=== PATIENT | male | born 1950 | race African-American/Black ===

== ENCOUNTER 2017-06-06 08:11 | Emergency (ER) | payer MEDICARE, OTHER ==
[2017-06-06] MEDS ORDERED: Morphine 4 MG/ML VIAL ONE (08:55)
[2017-06-06 08:59] LABS: #Eosinphils 1.1 thou/uL (0.0-0.7); #Lymphocytes 1.3 thou/uL (1.20-3.40); #Monocytes 0.5 thou/uL (0.11-0.59); #Neutrophils 4.5 thou/uL (1.40-6.50); %Basophils 0.3 % (0.0-1.0); %Monocytes 6.2 % (0.0-10.0); Hematocrit 44.8 % (42.0-52.0); Mean Platelet Volume 6.5 fL (7.4-10.4); White Blood Cell (WBC) Count 7.4 thou/uL (4.8-10.8)
[2017-06-06 09:24] LABS: ALT (SGPT) 14 U/L (8-55); AST (SGOT) 20 U/L (5-34); Alkaline Phosphatase 115 U/L (40-150); Anion Gap 13 mmol/L (10-20); BUN (Urea Nitrogen) 8 mg/dL (8.4-25.7); Bilirubin, Total 0.4 mg/dL (0.2-1.2); Calc. Creatinine Clearance 0 mL/min (70-130); Calcium 8.9 mg/dL (7.8-10.44); Carbon Dioxide 22 mmol/L (23-31); Chloride 100 mmol/L (98-107); Estimated GFR-MDRD Greater than 90; Globulin 3.6 g/dL (2.4-3.5); Lipase 129 U/L (8-78); Protein, Total 7.4 g/dL (5.8-8.1)
[2017-06-06] MEDS ORDERED: ISOVUE-370 76%-LOCM 1 ML ONE (10:05)
--- NOTE | 2017-06-06 11:13 | CT ---
CT OF THE ABDOMEN AND PELVIS WITH IV CONTRAST: Date: 06/06/17 INDICATION: 67-year-old male with abdominal pain for 2 days without bowel movements for 3 days. There is no repor t of fever, chills, nausea, vomiting, or diarrhea. Patient has a history of prior colon surgery in . COMPARISON: CT of the abdomen and pelvis dated 03/12/[address] of the abdomen dated 10/12/16. FINDINGS: ABDOMEN: The areas of scarring and interstitial thickening involving both lung bases are similar appearing. Th ere are areas of mild reticular nodularity again seen involving both lung bases, right greater than l eft, which may reflect changes of some bronchiolitis. There are scattered vascular calcifications involving the abdominopelvic vasculature. There are calci fied lymph nodes seen within the right infrahilar region. There are calcified granulomas within the l iver. There is contrast within the distal esophagus which may be related to reflux or esophageal dysmotilit y. The adrenal glands, pancreas, and left kidney appear within normal limits. There is a stable superior pole right renal cyst measuring 2.9 cm. The infrarenal abdominal aortic aneurysm is likely stable to the comparison in 2016 measuring up to 3 .3 cm. There is an endovascular stent within the right common iliac artery. There is some irregularit y within the lumen of the stent suspected. The patency of the stent is difficult to assess on this ex amination due to the phase of contrast administration. There is contrast opacification within the dis ramakrishna right common iliac artery, therefore complete occlusion is felt to be unlikely. PELVIS: The prostate is mildly enlarged. The bladder is moderately dilated. There are a few scattered diverticula involving the colon without evidence of active diverticulitis. There is stable postsurgical change of a right hemicolectomy and ileocolonic anastomosis within the r ight upper quadrant of the abdomen. The small bowel is of normal caliber. There is no evidence of bow el obstruction. No free fluid is evident. There is partial visualization of a left hip cephalomedullary device and healed left subtrochanteric hip fracture. There is scattered degenerative and osteoarthritic change. Small hemangiomas are seen w ithin the right aspect of L3 and L2. No suspicious osteolytic or osteoblastic lesions identified. IMPRESSION: 1. Moderate distention of the bladder may reflect sequelae of chronic bladder outlet obstruction. 2. Stable infrarenal abdominal aortic aneurysm. 3. Right common iliac artery stent. A degree of patency of the stent cannot be entirely evaluated on this venous phase examination. 4. Contrast within the distal esophagus may reflect reflux or dysmotility. 5. Reticular nodularity of both lung bases, right greater than left, may reflect bronchiolitis or in fectious or inflammatory etiology. 6. Stable right renal cyst. 7. Findings of prior granulomatous disease. 8. Other chronic findings as above. POS: [facility]
--- NOTE | 2017-06-08 15:40 | EKG ---
Test Reason : Blood Pressure : / mmHG Vent. Rate : 087 BPM Atrial Rate : 087 BPM P-R Int : 156 ms QRS Dur : 088 ms QT Int : 368 ms P-R-T Axes : 061 -40 054 degrees QTc Int : 442 ms Normal sinus rhythm Left axis deviation Abnormal ECG Confirmed by SRIDHAR FLOYD D.O. ([id number]), supervising editor trailer WENDY BURNS ([id number]) on 06/08/2017 3:39:59 PM Referred By: Confirmed By:SRIDHAR FLOYD D.O.
== END 2017-06-06 11:35 | disposition home or self-care (01) ==
LOC: ERS 08:11
DX: K85.90 Acute pancreatitis without necrosis or infection, unspecified (principal); K59.00 Constipation, unspecified; I10 Essential (primary) hypertension; Z79.82 Long term (current) use of aspirin; Z79.899 Other long term (current) drug therapy; Z86.711 Personal history of pulmonary embolism; Z87.891 Personal history of nicotine dependence
CPT/HCPCS: 74177; 80053; 83690; 85025; 93005; 96374; J2270

== ENCOUNTER 2017-09-18 03:28 | Emergency (ER) | payer MEDICARE, OTHER ==
[2017-09-18 03:48] LABS: #Eosinphils 0.5 thou/uL (0.0-0.7); #Lymphocytes 1.9 thou/uL (1.20-3.40); #Monocytes 0.5 thou/uL (0.11-0.59); #Neutrophils 3.6 thou/uL (1.40-6.50); %Basophils 0.6 % (0.0-1.0); %Eosinophils 7.7 % (0.0-10.0); %Monocytes 7.1 % (0.0-10.0); %Neutrophils 55.5 % (42.0-75.0); Hemoglobin 15.1 g/dL (14.0-18.0); Mean Corpuscular HGB CONC 34.2 g/dL (32.0-36.0); Mean Corpuscular Hemoglobin 31.1 pg (27.0-31.0); Mean Corpuscular Volume 90.9 fl (80.0-94.0); Mean Platelet Volume 6.6 fL (7.4-10.4); Platelet Count 194 thou/uL (130-400); RBC Distribution Width 13.4 % (11.5-14.5); Red Blood Cell (RBC) Count 4.84 mill/uL (4.70-6.10); White Blood Cell (WBC) Count 6.4 thou/uL (4.8-10.8)
[2017-09-18] MEDS ORDERED: Ondansetron HCl/PF 4 MG/2 ML Vial ONE (03:56)
[2017-09-18] MEDS ORDERED: Morphine 4 MG/ML VIAL ONE (03:56)
[2017-09-18 04:13] LABS: CKMB 0.8 ng/mL (0-6.6); Troponin I Less than 0.010 ng/mL (< 0.028)
[2017-09-18 04:27] LABS: ALT (SGPT) 18 U/L (8-55); AST (SGOT) 25 U/L (5-34); Albumin 4.3 g/dL (3.4-4.8); Alkaline Phosphatase 132 U/L (40-150); Anion Gap 20 mmol/L (10-20); BUN (Urea Nitrogen) 11 mg/dL (8.4-25.7); Bilirubin, Total 0.2 mg/dL (0.2-1.2); CK (CPK) 84 U/L (30-200); Calc. Creatinine Clearance 0 mL/min (70-130); Calcium 9.3 mg/dL (7.8-10.44); Carbon Dioxide 19 mmol/L (23-31); Chloride 101 mmol/L (98-107); Estimated GFR-MDRD 77; Globulin 3.8 g/dL (2.4-3.5); Glucose 121 mg/dL (80-115); Potassium 4.7 mmol/L (3.5-5.1); Protein, Total 8.1 g/dL (5.8-8.1); Sodium 135 mmol/L (136-145)
[2017-09-18] MEDS ORDERED: Mag-Al 1200 mg/1200 mg/30 ML UDCUP ONE (04:37)
[2017-09-18] MEDS ORDERED: Lidocaine Viscous Sol 2% 15 ml UD Cup ONE (04:37)
--- NOTE | 2017-09-18 08:05 | RAD ---
FRONTAL VIEW CHEST: INDICATIONS: Emergency exam. Chest pain, new onset. FINDINGS: There is patchy left basilar opacity. Slight residual right basilar opacity also remains. There is no effusion or discrete pneumothorax. The cardiac silhouette is stable. IMPRESSION: Interval improvement of right basilar opacity. Left patchy basilar opacity persists. Continued foll owup is recommended. POS: [facility]
[2017-09-18] MEDS ORDERED: ISOVUE-370 76%-LOCM 1 ML ONE (09:30)
--- NOTE | 2017-09-19 07:20 | CT ---
PRELIMINARY REPORT/[facility]/EMERGENCY AFTER HOURS PROCEDURE: EXAM: CT Angiography Chest With Intravenous Contrast CT Angiography Abdomen and Pelvis With Intravenous Contrast CLINICAL HISTORY: 67 years old, male; Pain; Chest pain; Type not specified; Patient HX: 67 y/o male HX of pancreatitis, aaa (stable- no repair), pe, HTN presenting with sudden onset of epigastric pain 4 hours ago. Afebrile, hemodynamically stable and in moderate distress 2/2 pain. Cardiovascular exam with no signs of overt heart failure or strain. Strong and equal peripheral pulses. Normal work of breathing, bris k cap refill and no clinical signs of dehydration. Abdomen with ttp in mid epigastric region. Reducib le midline hernia and well healed surgical scar. Considered acs, dissection, pe, aaa/thoracic, pancre atitis, perforated viscous, gerd. Plan - CT pe with run offs to visualize aorta, cardiac and abdomina l labs, pain/nausea control. TECHNIQUE: Axial computed tomographic angiography images of the chest, abdomen and pelvis with intravenous contr ast using CT angiography protocol. All CT scans at this facility use one or more dose reduction techn iques, viz.: automated exposure control; ma/kV adjustment per patient size (including targeted exams where dose is matched to indication; i.e. head); or iterative reconstruction technique. CONTRAST: 150 mL of ISO 370 administered intravenously. COMPARISON: No relevant prior studies available. FINDINGS: VASCULATURE: Aorta: Dilated descending thoracic aorta measuring up to 4.1 cm with mural thrombus, normalizing in c aliber distally measuring 2.6 cm at the hiatus. Infrarenal aortic aneurysm with mural thrombus measur ing up to 3.3 cm beginning 2.7 cm below the renal arteries extending to the bifurcation. Right common iliac artery stent. Mild/moderate iliofemoral atherosclerotic changes. No dissection. Pulmonary arteries: No pulmonary embolus is identified. Great vessels of aortic arch: No acute findings. No dissection. No arterial occlusion or significant stenosis. Celiac trunk and mesenteric arteries: No acute findings. No occlusion or significant stenosis. Renal arteries: No acute findings. No occlusion or significant stenosis. Iliac arteries: No acute findings. No occlusion or significant stenosis. CHEST: Lungs: Mild to moderate centrilobular emphysematous changes. Few calcified granulomas. Mild bronchial wall thickening. Mild bibasilar subsegmental and dependent atelectasis with some right lower lobe vo lume loss. No mass or consolidation. Pleural space: No significant effusion. No pneumothorax. Heart: Coronary calcifications. No significant pericardial effusion. ABDOMEN: Liver: Normal. Gallbladder and bile ducts: Cholelithiasis. Otherwise unremarkable. Pancreas: Unremarkable. No surrounding inflammatory changes. Spleen: Normal. Adrenals: Normal. Kidneys and ureters: 1 cm and 2.6 cm right renal cysts. Otherwise unremarkable. Stomach and bowel: Right hemicolectomy. Scattered colonic diverticula. Fluid-filled stomach. Mild gas eous distention of the colon. No focal inflammatory changes or evidence of obstruction. Appendix: See above. PELVIS: Bladder: Distended urinary bladder. Reproductive: Unremarkable. CHEST, ABDOMEN and PELVIS: Intraperitoneal space: Normal. No significant fluid collection. No free air. Bones/joints: Orthopedic fixation of the left femoral neck. No acute fracture. No dislocation. Soft tissues: Small abdominal wall eventration in the epigastrium with slight protrusion of nonobstru cted colon. Small fat-containing abdominal wall hernia just inferiorly. Lymph nodes: Calcified right hilar lymph nodes. IMPRESSION: 1. No acute findings. 2. Descending thoracic and infrarenal abdominal aortic aneurysms. Thank you for allowing us to participate in the care of your patient. Dictated and Authenticated by: Rene Angel MD 09/18/2017 6:19 AM Central Time ([place] & [place]) FINAL REPORT CT ANGIO OF CHEST PERFORMED WITH INTRAVENOUS CONTRAST ENHANCEMENT CT ANGIO OF ABDOMEN AND PELVIS PERFORMED WITH INTRAVENOUS CONTRAST ENHANCEMENT WITH 3D RECONSTRUCTION S: History: Patient presented with sudden onset of epigastric pain. History of abdominal aortic aneurysm , pancreatis. Comparison: 10-17-16 FINDINGS: There are emphysematous lung changes present. There is interstitial scarring in the lung bases. No pl eural effusion is identified. There is no significant mediastinal or hilar adenopathy. There is good pulmonary artery opacification, there is no CT evidence for pulmonary embolus. The ascending thoracic aorta is normal in caliber at 3.8 cm. Once again the proximal descending thora cic aorta is mildly aneurysmal with prominent intraluminal thrombus. The proximal aorta measures 4 cm tapering to approximately 2.7 cm at the esophageal hiatus. This is similar to the previous exam. CT ANGIO OF ABDOMEN PERFORMED WITH CONTRAST ENHANCEMENT WITH 3D RECONSTRUCTIONS: The liver, spleen, and pancreas regions are unremarkable. Subtle increased attenuation of the gallbla dder neck may be on the basis of some small stones or calcifications in the region of the pancreatic head. They appear to be related to vasculature in this area. Right and left adrenal glands and right and left kidneys are normal in size. There is a 2.8 cm right renal cyst and a smaller lower pole cyst which appears stable. No renal calculi are seen. No obstruct ion. No significant periaortic or mesenteric adenopathy. Infrarenal abdominal aorta is mildly aneurysmal a nd measures approximately 3.1 cm in AP dimension when measured at the same level of the previous exam . There is a right common iliac stent present. There are right hemicolectomy changes seen. CT OF PELVIS PERFORMED WITH CONTRAST ENHANCEMENT: The bladder is distended. The prostate is slightly enlarged. No evidence of adenopathy, mass or free fluid. IMPRESSION: 1. Stable appearance of the descending thoracic aneurysm and infrarenal and abdominal aortic aneurysm . 2. Probable small gallstones. 3. Stable right renal cyst. 4. Right hemicolectomy change. 5. Emphysematous lung change. 6. This report is in agreement with the temporary report that was issued by [facility]. POS: [facility]
== END 2017-09-18 06:51 | disposition home or self-care (01) ==
LOC: ERS 03:28
DX: K21.9 Gastro-esophageal reflux disease without esophagitis (principal); I10 Essential (primary) hypertension; Z87.01 Personal history of pneumonia (recurrent); Z86.711 Personal history of pulmonary embolism; Z79.82 Long term (current) use of aspirin; Z79.899 Other long term (current) drug therapy
CPT/HCPCS: 71045; 71275; 80053; 82553; 83605; 83690; 84484; 85025; 93005; 96361; 96374; 96375; J2270; J2405

== ENCOUNTER 2018-03-13 12:06 | Outpatient (CLI) | payer MEDICARE, OTHER | END 2018-03-13 12:07 | disposition home or self-care (01) | LOC: BICCT 12:06 | PROVIDERS: ATTEND Nurse Practitioner Family | DX: R13.0 Aphagia (principal) | CPT/HCPCS: 70450 ==

== ENCOUNTER 2018-05-08 11:49 | Emergency (ER) | payer MEDICARE, OTHER ==
[2018-05-08 12:47] LABS: #Eosinphils 0.1 thou/uL (0.0-0.7); #Lymphocytes 1.5 thou/uL (1.20-3.40); #Monocytes 0.4 thou/uL (0.11-0.59); #Neutrophils 3.6 thou/uL (1.40-6.50); %Basophils 0.5 % (0.0-1.0); %Eosinophils 2.4 % (0.0-10.0); %Lymphocytes 26.1 % (21.0-51.0); %Monocytes 7.1 % (0.0-10.0); %Neutrophils 63.9 % (42.0-75.0); Mean Corpuscular HGB CONC 32.8 g/dL (32.0-36.0); Mean Corpuscular Volume 94.5 fL (78.0-98.0); Mean Platelet Volume 6.9 fL (7.4-10.4); Platelet Count 182 thou/uL (130-400); RBC Distribution Width 13.5 % (11.5-14.5); Red Blood Cell (RBC) Count 5.17 mill/uL (4.70-6.10); White Blood Cell (WBC) Count 5.6 thou/uL (4.8-10.8)
[2018-05-08 13:04] LABS: ALT (SGPT) 13 U/L (8-55); AST (SGOT) 23 U/L (5-34); Albumin 3.9 g/dL (3.4-4.8); Alkaline Phosphatase 88 U/L (40-150); Anion Gap 12 mmol/L (10-20); BUN (Urea Nitrogen) 7 mg/dL (8.4-25.7); Bilirubin, Total 0.7 mg/dL (0.2-1.2); Calc. Creatinine Clearance 0 mL/min (70-130); Calcium 9.5 mg/dL (7.8-10.44); Carbon Dioxide 23 mmol/L (23-31); Chloride 104 mmol/L (98-107); Estimated GFR-MDRD Greater than 90; Globulin 3.3 g/dL (2.4-3.5); Glucose 76 mg/dL (80-115); Potassium 4.3 mmol/L (3.5-5.1); Protein, Total 7.2 g/dL (5.8-8.1); Sodium 135 mmol/L (136-145)
--- NOTE | 2018-05-08 13:18 | ULT ---
ULTRASOUND WITH DOPPLER DUPLEX VENOUS LOWER EXTREMITY LEFT: CPT: 56400 ICD-10-PCS: B54D HISTORY: Pain. TECHNIQUE: Color flow Doppler, spectral waveform analysis of pulsed Doppler, and cruz-scale imaging with abebe loreta and augmentation, were used to evaluate the bilateral common femoral, femoral, popliteal, agriculture consultant ior tibial, and superficial femoral, veins; and the proximal portions of the profunda femoral and gre ater saphenous, veins. FINDINGS: There is appropriate compressibility and flow within the imaged deep venous system of the left lower extremity, without evidence of DVT. IMPRESSION: No evidence of deep vein thrombosis of the imaged left lower extremity. POS: [facility]
--- NOTE | 2018-05-08 14:51 | CT ---
CT ANGIOGRAM ABDOMEN AND PELVIS WITH IV CONTRAST AND 3D RECONSTRUCTIONS CT ANGIOGRAM BILATERAL LOWER EXTREMITIES WITH RUNOFF TO THE FEET WITH IV CONTRAST AND 3D RECONSTRUCTI ONS: Date: 05/08/18 HISTORY: Loss of leg pulses. Unable to feel pulses distal to the popliteal arteries on physical exam. COMPARISON: CT abdomen and pelvis on 06/06/17. FINDINGS: CT ANGIOGRAM ABDOMEN AND PELVIS: There are calcified right hilar lymph nodes with calcified granulomata seen within the right lung bas e. Linear areas of scarring and/or atelectasis are seen at each lung base. Calcified granulomata are seen in the liver and spleen. Right renal cysts are again present. The pancreas, bilateral adrenal glands, left kidney, and urinary bladder demonstrate a normal CT appe arance. Prostate gland is enlarged, with transverse dimensions measuring 5.5 cm. There is colonic diverticulosis. Postsurgical changes related to right hemicolectomy noted. There is ventral abdominal wall hernia in the epigastric region with a portion of the anterior wall of the transverse colon extending into the defect. There are additional small, fat-containing supraumbilical hernias as well. There are atherosclerotic calcifications and plaque seen in the abdominal aorta and involving the francisco ac arteries. An infrarenal abdominal aortic aneurysm is again present, slightly larger in size, measu ring 3.4 cm x 3.3 cm, and on the prior study this measured 3.1 cm x 3.0 cm in maximal dimensions. The aneurysm extends to the level of the aortic bifurcation, but does not involve the iliac arteries. Th ere is prominent calcified atherosclerotic plaque within the iliac artery. There is question of a aurelia nt within the right common iliac artery. Left common iliac artery is ectatic. There is a single patent right renal artery with mild atherosclerotic plaque at the origin of the lef t renal artery with only mild narrowing at the origin of the left renal artery. There is atherosclero tic plaque involving the proximal celiac and superior mesenteric arteries, but these arteries are pat ent. The inferior mesenteric artery also appears patent. Dense vascular calcifications involve the iliac arteries bilaterally with mild degrees of narrowing. There are prominent degenerative changes in the lumbar spine. No other interval change from prior johnathan dy. CT ANGIOGRAM BILATERAL LOWER EXTREMITIES WITH RUNOFF TO THE FEET: Right lower extremity: There are scattered atherosclerotic vascular calcifications within the femora l arteries. There is artifact at the level of the distal left SFA in the region of the adductor canal with prominent vascular calcifications limiting adequate evaluation, but there is mild to moderate n arrowing in the right SFA at the level of the adductor canal. Mild atherosclerotic plaque narrowing i s seen in the [id number] popliteal artery. Eccentric atherosclerotic plaque is seen involving the distal right popliteal artery. Posterior tibial artery is occluded at the origin. There is faint opa cification of the anterior tibial and peroneal arteries. No flow is seen within the peroneal artery d istal to the level of the proximal calf and there is only very faint enhancement of the right anterio r tibial artery to the level of the mid calf. Left lower extremity: There is occlusion of the right superficial femoral artery at the level of the mid thigh. The left common femoral artery is patent. The proximal and mid superficial femoral artery are patent, although there is suggestion of occlusion of branch vessels of the profunda femoral jeferson ry at the level of the proximal thigh. Atherosclerotic plaque involves the popliteal artery with mild degrees of narrowing involving the lef t popliteal artery. There is single vessel runoff to the left lower extremity via the peroneal artery , with contrast opacification only seen to the level of the distalmost calf. The anterior tibial and posterior tibial arteries appear to be occluded proximally. There are postsurgical changes of the left femur related to an antegrade medullary trae transfixing a fracture involving the proximal and mid diaphysis of the femur with prominent heterotopic ossificatio n. Dorsalis pedis and posterior tibial arteries of bilateral lower extremities are not seen. IMPRESSION: 1. Slight interval increase in infrarenal abdominal aortic aneurysm with greatest dimension of 3.4 c m, with prominent eccentric atherosclerotic plaque present. 2. Diffuse atherosclerotic vascular calcifications and plaque seen throughout the arterial vessels. 3. Occlusion of the mid left superficial femoral artery extending for a length of approximately 4.7 cm. 4. Single vessel runoff to the left lower extremity via the peroneal artery. 5. Suboptimal opacification of the distal right lower extremity arterial vessels, although there is faint opacification of the anterior tibial artery to the level of the mid to distal calf. There is no enhancement/opacification involving the dorsalis pedis or posterior tibial arteries bilaterally. 6. Occlusion of more distal branching vessels of the left profunda femoral artery at the level of th e remote diaphyseal fracture of the left femur. 7. Postsurgical changes related to right hemicolectomy. There are ventral abdominal wall hernias, an d at least two of the hernias contain fat, but the ventral abdominal wall hernia in the epigastric re gion does contain the anterior wall of the transverse colon without evidence of a bowel obstruction. 8. Remainder of the findings are as described above. POS: [facility]
[2018-05-08] MEDS ORDERED: ISOVUE-370 76%-LOCM 1 ML ONE (16:21)
== END 2018-05-08 17:21 | disposition home or self-care (01) ==
LOC: ERS 11:49
DX: I73.9 Peripheral vascular disease, unspecified (principal); I10 Essential (primary) hypertension; F17.210 Nicotine dependence, cigarettes, uncomplicated; Z86.711 Personal history of pulmonary embolism; Z87.01 Personal history of pneumonia (recurrent); Z79.899 Other long term (current) drug therapy; Z79.82 Long term (current) use of aspirin
CPT/HCPCS: 36415; 75635; 80053; 85025; 93005

== ENCOUNTER 2018-05-13 10:14 | Day surgery (SDC) | payer MEDICARE, OTHER ==
[2018-05-12 17:00] VITALS: BMI 26.2
[2018-05-13] MEDS ORDERED: Lidocaine 1% (PF) 30 ML VIAL ONE (10:56)
[2018-05-13] MEDS ORDERED: Midazolam HCl 2 mg/2 ml Vial ONE (11:32)
[2018-05-13] MEDS ORDERED: Fentanyl 100 MCG/2 ML VIAL ONE ×2 (11:32→13:35)
[2018-05-13] MEDS ORDERED: Heparin 10,000 UNITS/1 ML VIAL ONE (12:08)
--- NOTE | 2018-05-13 12:44 | OP ---
DATE OF PROCEDURE: 05/13/2018 PREOPERATIVE DIAGNOSIS: Peripheral vascular disease with new onset rest pain of the left foot. POSTOPERATIVE DIAGNOSIS: Peripheral vascular disease with new onset rest pain of the left foot. PROCEDURES: 1. Ultrasound guided vascular access to right common femoral artery. 2. Abdominal aortogram. 3. Left common iliac artery angiogram. 4. Left external iliac artery angiogram. 5. Left common femoral artery angiogram with left leg runoff. 6. Right external iliac artery angiogram. TOTAL CONTRAST: 28 mL FLUORO TIME: 6.2 minutes. ANESTHESIA: Lidocaine 1% for local/1 mg Versed and 25 mcg fentanyl for IV sedation. DESCRIPTION OF PROCEDURE: After consent was obtained, the patient was brought to the cathead operator, place d in supine position on the cathead operator table. IV sedation was given. Groins were prepped and draped i n the usual sterile fashion. Using ultrasound guidance, the right groin was anesthetized and percuta neous access to the common femoral artery obtained with a micropuncture kit. Micropuncture sheath wa s then exchanged for a 5-[place] sheath. Contra catheter was passed up into the abdominal aorta. Gifford d injected aortogram was performed. The luminal diameter of the aorta is normal. There was no signi ficant aortic or iliac stenosis. Of note, the patient has a right common iliac stent, which was plac ed in [facility] in 2007. Contra catheter was guided over the aortic bifurcation into the common iliac artery. Hand injected a rteriogram was performed illuminating the common iliac artery. A Glidewire and angled glide catheter were used to negotiate the iliac system into the external iliac artery. Hand injected arteriogram w as performed illuminating the pathway down into the common femoral artery. There was no iliac stenos is of note on the left. The angled glide catheter was positioned with its tip in the common femoral artery. Digital angiography was used to shane the contrast from groin to foot. The common femoral a rtery was patent into a profunda system, which was rich. Superficial femoral artery was flush occlud ed. Superficial femoral artery reconstituted at Ponce's canal. The posterior tibial artery was pat ent down toward the foot. The angled glide catheter was removed. Hand injected arteriogram was perf ormed of the right leg through the sheath. The common femoral, superficial femoral and profunda were all widely patent. Popliteal artery was widely patent. There was a large anterior tibial and peron eal system, which passed down into the foot. The groin was closed with a ProGlide and hemostasis obt ained. The patient was transferred to recovery room and home later today. He will need a left fem-p op in the near future.
[2018-05-13] MEDS ORDERED: Fentanyl 100 MCG/2 ML VIAL SLOW IVP PRN (13:54)
[2018-05-13] MEDS ORDERED: Acetaminophen 325 MG TAB PO PRN (13:54)
[2018-05-13] MEDS ORDERED: Iopamidol 370 76% 50 ML VIAL FS ONE (16:30)
== END 2018-05-13 15:24 | disposition home or self-care (01) ==
LOC: SDC 10:14
PROVIDERS: ATTEND Thoracic Surgery (Cardiothoracic Vascular Surgery)
PROC: B41DZZZ Fluoroscopy of Aorta and Bilateral Lower Extremity Arteries (ICD-10-PCS; principal; 2018-05-13)
DX: I70.222 Atherosclerosis of native arteries of extremities with rest pain, left leg (principal); E78.2 Mixed hyperlipidemia; I10 Essential (primary) hypertension; N40.0 Benign prostatic hyperplasia without lower urinary tract symptoms; Z86.711 Personal history of pulmonary embolism; Z79.899 Other long term (current) drug therapy
CPT/HCPCS: 36247; 75630; 76942; C1760; C1769 ×4; C1887; 96374; 99152; J1644; J2001; J2250; J3010

== ENCOUNTER 2018-05-21 06:17 | Inpatient (IN) | payer MEDICARE, OTHER ==
[2018-05-20 08:56] VITALS: BMI 23.3
[2018-05-21] MEDS ORDERED: Protamine Sulfate 50 MG/5 ML VIAL ONE ×2 (06:27→07:16)
[2018-05-21] MEDS ORDERED: Heparin 5,000 UNITS/ML VIAL ONE (06:27)
[2018-05-21] MEDS ORDERED: CEFAZOLIN 2 GM/50 ML BAG ONE (06:33)
[2018-05-21] MEDS ORDERED: Fentanyl 100 MCG/2 ML VIAL ONE ×2 (06:59→10:51)
[2018-05-21] MEDS ORDERED: Protamine Sulfate 250 MG/25 ML VIAL ONE (07:16)
[2018-05-21] MEDS ORDERED: Midazolam HCl 2 mg/2 ml Vial ONE (07:16)
[2018-05-21] MEDS ORDERED: Fentanyl 250 MCG/5 ML VIAL ONE (07:16)
--- NOTE | 2018-05-21 10:18 | OP ---
DATE OF PROCEDURE: 05/21/2018 PREOPERATIVE DIAGNOSIS: Peripheral vascular disease with left leg rest pain. POSTOPERATIVE DIAGNOSIS: Peripheral vascular disease with left leg rest pain. PROCEDURE: Left common femoral to above knee popliteal artery bypass utilizing 8 mm ring Propaten co ated Midkiff-Patel - note greater saphenous vein was interrogated with ultrasound and appeared small. It was explored at the level of the knee and was too small to utilize for bypass. SURGEON: Chente Hendrix M.D. ANESTHESIA: General endotracheal. ESTIMATED BLOOD LOSS: Less than 50. PROCEDURE IN DETAIL: After consent was obtained, the patient was brought to operating room and place d in the supine position on the operating room table. Appropriate anesthetic monitor was placed and general endotracheal anesthesia induced. The left leg was prepped and draped in usual sterile fashio n. Greater saphenous vein was explored at the level of the knee and was very small. We elected to u tilize a prosthetic material at that point. The above knee popliteal artery was exposed and was soft . Common femoral artery was exposed at the level of the profunda bifurcation. The patient was given 7500 units of heparin. An 8 mm ring Midkiff-Patel was tunneled and cut to appropriate shape for proximal anastomosis. After 3 minutes common femoral and profunda femoris arteries were clamped. Incision w as made on the common femoral artery, extended down toward the superficial femoral. The proximal narciso stomosis was created with a running 6-0 Prolene suture. On release of clamps, there was adequate hem ostasis. The wound was packed. Distal artery was then addressed. Proximal and distal clamps were placed on the popliteal artery. The graft was cut to appropriate cassi gth and shape. Rings were removed for approximately 2 cm proximal. The arteriotomy was created and a running 6-0 Prolene suture anastomosis was created. Clamps were released and antegrade flow reesta blished. There was a palpable pulse within the popliteal artery distally. Doppler signal is triphas ic which abated with clamping the graft. 50 mg of protamine was given. Wounds were copiously irrigated. Hemostasis was ensured. Wounds were then closed in layers and Dermabond applied to the skin. The patient was awakened, extubated, and t ransferred to the recovery room in stable condition. Needle, sponge, and instrument counts were all reported correct at the end of the procedure.
[2018-05-21] MEDS ORDERED: HYDROcodone/Acetaminophen 5/325 mg Tablet PO PRN ×2 (11:48)
[2018-05-21] MEDS ORDERED: Cholestyramine/Aspartame 4 gm Packet PO PRN (11:48)
[2018-05-21] MEDS ORDERED: Promethazine HCl 25 MG/ML VIAL PR PRN (11:48)
[2018-05-21] MEDS ORDERED: Acetaminophen 325 MG TAB PO PRN (11:48)
[2018-05-21] MEDS ORDERED: Promethazine HCl 25 MG/ML VIAL IM PRN (11:48)
[2018-05-21] MEDS ORDERED: Cyproheptadine 4 MG TAB PO PRN (11:48)
[2018-05-21] MEDS ORDERED: Ondansetron PF 4 MG/2 ML Vial IVP PRN (11:48)
[2018-05-21] MEDS ORDERED: hydrALAZINE 20 MG/ML VIAL SLOW IVP PRN (11:48)
[2018-05-21] MEDS ORDERED: Heparin 10,000 UNITS/ 10 ML VIAL ONE (13:38)
[2018-05-21] MEDS ORDERED: PROPOFOL 200 MG/20 ML VIAL ONE (13:38)
[2018-05-21] MEDS ORDERED: PHENYLEPHRINE-NS 100 MCG/ML 10 ML SYRINGE ONE (13:38)
[2018-05-21] MEDS ORDERED: Ondansetron PF 4 MG/2 ML Vial ONE (13:38)
[2018-05-21] MEDS ORDERED: Lidocaine 1% PF 5 ML VIAL ONE (13:38)
[2018-05-21] MEDS ORDERED: ePHEDrine/0.9% NaCl/PF SYRINGE 50 mg/10 ml ONE (13:38)
[2018-05-21] MEDS ORDERED: Glycopyrrolate 0.2 MG/ML 5 ML SYRINGE ONE (13:38)
[2018-05-21] MEDS: Fentanyl 100 MCG/2 ML VIAL SLOW IVP PRN ×2 (13:45→16:24)
[2018-05-21] MEDS ORDERED: CEFAZOLIN 2 GM/50 ML BAG IVPB SCH (14:00)
[2018-05-21] MEDS: CEFAZOLIN 2 GM/50 ML BAG IVPB SCH ×2 (16:29→23:37)
[2018-05-21] MEDS: Ketorolac Tromethamine 30 MG/ML VIAL IVP SCH ×2 (17:13→23:37)
[2018-05-21] MEDS: Timolol 0.5% Ophth Soln 5 ml Bottle EA EYE SCH (20:41)
[2018-05-21] MEDS ORDERED: Nortriptyline HCl 25 MG CAP PO SCH (21:00)
[2018-05-22 04:02] VITALS: TEMP 97.7
[2018-05-22] MEDS: Ketorolac Tromethamine 30 MG/ML VIAL IVP SCH (06:02)
[2018-05-22 07:22] VITALS: BP 117/75
[2018-05-22] MEDS ORDERED: Amlodipine 5 MG TAB PO SCH (09:00)
[2018-05-22] MEDS ORDERED: FLUoxetine HCl 20 MG CAP PO SCH (09:00)
[2018-05-22] MEDS ORDERED: traZODone HCl 50 MG TAB PO SCH (09:00)
[2018-05-22] MEDS ORDERED: Loratadine 10 MG TAB PO SCH (09:00)
[2018-05-22] MEDS ORDERED: Tamsulosin HCl 0.4 MG CAP PO SCH (09:00)
[2018-05-22] MEDS ORDERED: Prevnar 13-Val Conj/PF 0.5 ML SYRINGE IM ONE (09:00)
[2018-05-22] MEDS ORDERED: Clopidogrel Bisulfate 75 MG TAB PO SCH (09:00)
[2018-05-22] MEDS ORDERED: Sildenafil Citrate 20 MG TAB PO SCH (09:00)
[2018-05-22] MEDS ORDERED: Famotidine 20 MG TAB PO SCH (09:00)
[2018-05-22] MEDS ORDERED: Losartan 25 MG TAB PO SCH (09:00)
[2018-05-22] MEDS ORDERED: Atorvastatin Calcium 20 MG TAB PO SCH (09:00)
[2018-05-22] MEDS ORDERED: Finasteride 5 MG TAB PO SCH (09:00)
[2018-05-22] MEDS ORDERED: lamoTRIgine 25 MG TAB PO SCH (09:00)
[2018-05-22] MEDS: CEFAZOLIN 2 GM/50 ML BAG IVPB SCH (09:06)
[2018-05-22] MEDS: Timolol 0.5% Ophth Soln 5 ml Bottle EA EYE SCH (09:11)
--- NOTE | 2018-05-22 12:33 | DIS ---
DATE OF ADMISSION: 05/21/2018 DATE OF DISCHARGE: 05/22/2018 PRINCIPAL DIAGNOSIS: Peripheral vascular disease with left lower extremity rest pain. PROCEDURES PERFORMED: Left common femoral artery to suprageniculate popliteal artery bypass with 8-m m Propaten Dunbarton-Patel graft, 05/21/2018. HISTORY OF PRESENT ILLNESS AND HOSPITAL COURSE: The patient is a 67-year-old smoker, who by history had undergone popliteal artery stenting through the below knee incision while in [facility] in 2007. Abou t 2-3 weeks ago, he presented to the emergency room with left lower leg and foot pain at rest and was found to have occluded superficial femoral artery with posterior tibial runoff to the foot. It also coincidentally showed a modest size abdominal aortic aneurysm measuring about 4 cm in diameter. The patient underwent conventional arteriography as part of his evaluation, which showed patency of the rich system of profunda collaterals with reasonably good runoff. The patient was taken to the operat ing room for a femoral popliteal bypass grafting. Upon exploring the greater saphenous vein at the l evel of the knee, it was felt to be too smaller vessel to support bypass confirming the ultrasonograp hic findings immediately preoperatively. An 8-mm Propaten Dunbarton-Patel was used to perform a supragenicu late femoral popliteal bypass and he had an uneventful overnight recovery. Today, he has trivial hank ma, warm foot with resolution of his rest pain and strongly dopplerable posterior tibial pulse in the foot. He is anxious to go home. I have discussed with him about striking a balance between adequat e ambulation for the benefits of ambulation and adequate leg elevation to minimize edema. He has bee n written a prescription for Vicodin as needed for pain and daily Plavix.
--- NOTE | 2018-05-25 22:08 | EKG ---
Test Reason : PREOP Blood Pressure : / mmHG Vent. Rate : 075 BPM Atrial Rate : 075 BPM P-R Int : 152 ms QRS Dur : 076 ms QT Int : 408 ms P-R-T Axes : 070 -35 037 degrees QTc Int : 455 ms Normal sinus rhythm Left axis deviation Abnormal ECG When compared with ECG of 08-MAY-2018 17:03, Nonspecific T wave abnormality no longer evident in Anterior leads Confirmed by SILVANA STEEL (2) on 05/25/2018 10:07:50 PM Referred By: Aaliyah RAWLS Confirmed By:SILVANA STEEL
== END 2018-05-22 12:25 | disposition home or self-care (01) | DRG 254 ==
LOC: SURG A 06:17
PROVIDERS: ADMIT Thoracic Surgery (Cardiothoracic Vascular Surgery); ATTEND Thoracic Surgery (Cardiothoracic Vascular Surgery)
PROC: 041L0JL Bypass Left Femoral Artery to Popliteal Artery with Synthetic Substitute, Open Approach (ICD-10-PCS; principal; 2018-05-21)
PROC: 06JY0ZZ Inspection of Lower Vein, Open Approach (ICD-10-PCS; 2018-05-21)
DX: I70.222 Atherosclerosis of native arteries of extremities with rest pain, left leg (principal); F17.210 Nicotine dependence, cigarettes, uncomplicated; I10 Essential (primary) hypertension; E78.2 Mixed hyperlipidemia; N40.0 Benign prostatic hyperplasia without lower urinary tract symptoms; Z86.711 Personal history of pulmonary embolism; Z79.82 Long term (current) use of aspirin; Z79.899 Other long term (current) drug therapy; Z90.49 Acquired absence of other specified parts of digestive tract
CPT/HCPCS: 86850; 86900; 86901; 93005; 93010; J1642; J1644; J1885; J2001; J2250; J2405; J2704; J2720; J3010

== ENCOUNTER 2018-09-29 09:53 | Outpatient (CLI) | payer MEDICARE, OTHER ==
--- NOTE | 2018-09-29 12:19 | RAD ---
2 VIEW CHEST: Date: 09/29/18 HISTORY: Dyspnea. COMPARISON: 04/24/16. FINDINGS: Lungs are clear. No infiltrate. No evidence of vascular congestion or edema. Heart size normal. [place] us structures show old left rib fractures and degenerative spine changes, which appear stable. IMPRESSION: No acute findings. POS: [facility]
== END 2018-09-29 09:54 | disposition home or self-care (01) ==
LOC: RAD 09:53
PROVIDERS: ATTEND Internal Medicine Critical Care Medicine
DX: R06.00 Dyspnea, unspecified (principal)
CPT/HCPCS: 71046

== ENCOUNTER 2018-10-11 15:04 | Emergency (ER) | payer MEDICARE, OTHER ==
--- NOTE | 2018-10-11 15:54 | RAD ---
EXAM: XR Humerus Rt 2 View STANDARD PROVIDED CLINICAL HISTORY: Pain FINDINGS: There is no evidence for fracture or other acute osseous abnormality. Alignment appears anatomic. Joyce nt spaces appear preserved. IMPRESSION: No evidence for an acute osseous abnormality. If there is persistent clinical concern, conservative m anagement and follow-up imaging advised.
[2018-10-11] MEDS ORDERED: Adacel (T-DAP) 0.5 ML SYRINGE ONE (16:26)
[2018-10-11] MEDS ORDERED: HYDROcodone/Acetaminophen 5/325 mg Tablet ONE (16:26)
[2018-10-11] MEDS ORDERED: Lidocaine 1% PF 5 ML VIAL ONE ×2 (17:00→17:01)
[2018-10-11] MEDS ORDERED: Lidocaine 1% w/Epinephrine 1:100K 20 ML VIAL ONE (17:05)
--- NOTE | 2018-10-11 17:05 | RAD ---
Chest one view HISTORY: Chest pain. COMPARISON: 09/18/2017. FINDINGS: Cardiac silhouette is magnified by projection. Pulmonary vasculature is unremarkable. Media stinum is midline with aortic calcification. No lobar consolidation or evidence of pneumothorax. Impression: Atherosclerosis. No active cardiopulmonary abnormalities are otherwise demonstrated.
--- NOTE | 2018-10-11 17:07 | RAD ---
Left elbow 2 views HISTORY: Fall. Left elbow injury. FINDINGS: Radiocapitellar alignment is maintained. No acute fracture, dislocation, or fluid distentio n of the joint capsule. Minimal osteophytosis. IMPRESSION: No acute osseous abnormalities are demonstrated.
--- NOTE | 2018-10-11 17:08 | RAD ---
Left elbow 2 views HISTORY: Fall. Left elbow injury. FINDINGS: 2 oblique views are included to accompany the separate two-view exam. No acute osseous abnormalities are demonstrated on these 2 oblique images.
== END 2018-10-11 17:52 | disposition home or self-care (01) ==
LOC: ERS 15:04
DX: S51.011A Laceration without foreign body of right elbow, initial encounter (principal); S57.01XA Crushing injury of right elbow, initial encounter; F17.210 Nicotine dependence, cigarettes, uncomplicated; I10 Essential (primary) hypertension; Z86.711 Personal history of pulmonary embolism; Z87.01 Personal history of pneumonia (recurrent); Z79.899 Other long term (current) drug therapy; Z79.82 Long term (current) use of aspirin; W22.8XXA Striking against or struck by other objects, initial encounter
CPT/HCPCS: 12002; 71045; 90471; 90715; J2001

== ENCOUNTER 2018-12-02 12:42 | Outpatient (CLI) | payer MEDICARE, OTHER ==
--- NOTE | 2018-12-02 13:17 | ULT ---
Exam: Left lower extremity venous ultrasound with Doppler COMPARISON: 05/08/2018 HISTORY: Left leg edema. Status post femoral arterial bypass May 18 TECHNIQUE: Grayscale, color flow, Doppler imaging and spectral wave form analysis performed the left lower extremity venous system FINDINGS: There is compressibility, presence of flow and augmentation in the common femoral vein, femoral vein and popliteal vein. There is flow in the greater saphenous vein, profunda vein and posterior tibial vein IMPRESSION: No evidence of thrombus in the left lower extremity deep venous system
--- NOTE | 2018-12-02 13:34 | ULT ---
Exam: Left lower extremity arterial ultrasound with Doppler HISTORY: Peripheral artery disease. Previous bypass and graft. COMPARISON: None TECHNIQUE: Grayscale, color flow, Doppler imaging and spectral waveform analysis left lower extremity arterial system FINDINGS: There is triphasic flow in the [place] common femoral artery. Velocity is 71.2 cm/s The [place] profunda femoral and popliteal artery do not have any flow. There is patency with triphasi c flow in the femoral bypass. Proximally the velocity is 57 cm/s, midportion 69.4 cm/s, distal portion 57.3 Triphasic flow throughout the bypass There are bypass anastomosis at the level of the proximal popliteal artery. The proximal pulmonary is patent with biphasic flow and velocity of 38.3 cm/s. The mid to distal [place] popliteal artery is occluded. Monophasic flow in the posterior tibial artery, anterior tibial artery with a velocity of 35.2 and 4 6.0 cm/s respectively. Suboptimal evaluation of the dorsalis pedis artery IMPRESSION: 1. Patent femoral popliteal artery bypass. 2. Triphasic flow in the common femoral artery and bypass graft. Biphasic flow in the mid to distal p opliteal artery, posterior tibial artery and anterior tibial artery. 3. Occlusion of the profunda femoral artery as well as the mid to distal [place] popliteal artery. Transcribed Date/Time: 12/02/2018 1:39 PM
== END 2018-12-02 12:43 | disposition home or self-care (01) ==
LOC: ULT 12:42
DX: I73.9 Peripheral vascular disease, unspecified (principal); R60.0 Localized edema; I70.8 Atherosclerosis of other arteries
CPT/HCPCS: 93923

== ENCOUNTER 2018-12-05 10:53 | Outpatient (CLI) | payer MEDICARE, OTHER ==
[2018-12-05 14:02] LABS: Hemoglobin 15.5 g/dL (14.0-18.0); Mean Corpuscular HGB CONC 33.5 g/dL (32.0-36.0); Mean Corpuscular Hemoglobin 32.1 pg (27.0-31.0); Mean Corpuscular Volume 95.9 fL (78.0-98.0); Mean Platelet Volume 7.1 fL (7.4-10.4); Platelet Count 190 thou/uL (130-400); RBC Distribution Width 13.2 % (11.5-14.5); Red Blood Cell (RBC) Count 4.84 mill/uL (4.70-6.10); White Blood Cell (WBC) Count 7.9 thou/uL (4.8-10.8)
[2018-12-05 14:06] LABS: Bilirubin Negative (Negative); Blood, Urine Negative (Negative); Clarity CLEAR (Clear); Glucose, Urine (Dipstick) Negative (Negative); Leukocyte Negative (Negative); Nitrite Negative (Negative); Protein, Urine (Dipstick) Negative (Neg-Trace); Specific Gravity, Urine 1.005 (1.002-1.036); Urobilinogen 0.2 mg/dL (0.2-1.0)
[2018-12-05 14:08] LABS: Bacteria/HPF None Seen HPF (None Seen); Hyaline Casts/LPF 4-6 HYALINE CAST LPF (0-3 Hyaline); Pathc Cast-AUWi Flag 0.54 (0-2.49); RBC/HPF 0-3 HPF (0-3); Squamous Epithelial None Seen HPF (0-3); WBC/HPF None Seen HPF (0-3)
[2018-12-05 14:12] LABS: INR-International Normal Ratio 1.1; PTT 30.9 SEC (22.9-36.1); Prothrombin Time 13.8 SEC (12.0-14.7)
[2018-12-05 14:24] LABS: Anion Gap 16 mmol/L (10-20); BUN (Urea Nitrogen) 7 mg/dL (8.4-25.7); Calc. Creatinine Clearance 0 mL/min (70-130); Calcium 9.3 mg/dL (7.8-10.44); Carbon Dioxide 17 mmol/L (23-31); Chloride 108 mmol/L (98-107); Estimated GFR-MDRD Greater than 90; Glucose 66 mg/dL (80-115); Sodium 136 mmol/L (136-145)
--- NOTE | 2018-12-06 09:20 | EKG ---
Test Reason : Blood Pressure : / mmHG Vent. Rate : 060 BPM Atrial Rate : 060 BPM P-R Int : 144 ms QRS Dur : 080 ms QT Int : 394 ms P-R-T Axes : 078 012 056 degrees QTc Int : 394 ms Normal sinus rhythm with sinus arrhythmia Low voltage QRS Borderline ECG When compared with ECG of 21-MAY-2018 07:03, QT has shortened Confirmed by SALOMON CARRILLO, SJohn ([id number]) on 12/06/2018 9:20:42 AM Referred By: PRINCESS Confirmed By:DR. Yecenia LATIF MD
== END 2018-12-05 10:54 | disposition home or self-care (01) ==
LOC: LABBT 10:53
PROVIDERS: ATTEND Urology
DX: Z01.818 Encounter for other preprocedural examination (principal); Z12.5 Encounter for screening for malignant neoplasm of prostate; N40.1 Benign prostatic hyperplasia with lower urinary tract symptoms; R31.29 Other microscopic hematuria; F10.10 Alcohol abuse, uncomplicated; N28.1 Cyst of kidney, acquired; Z72.0 Tobacco use; Z98.890 Other specified postprocedural states; Z87.898 Personal history of other specified conditions
CPT/HCPCS: 80048; 81001; 85027; 85610; 85730; 87086; 93005; 93010

== ENCOUNTER 2018-12-17 06:39 | Day surgery (SDC) | payer MEDICARE, OTHER ==
[2018-12-05 11:03] VITALS: BMI 25.5
[2018-12-17] MEDS ORDERED: Levofloxacin 500 mg/D5W 100 ml Premix Bag ONE (07:51)
[2018-12-17] MEDS ORDERED: Fentanyl 100 MCG/2 ML VIAL ONE ×2 (08:36→09:55)
[2018-12-17] MEDS ORDERED: Oxybutynin 5 MG TAB ONE (09:53)
[2018-12-17] MEDS ORDERED: Phenazopyridine HCl 97.5 MG TABLET ONE (09:53)
--- NOTE | 2018-12-17 10:15 | OP ---
DATE OF PROCEDURE: 12/17/2018 PREOPERATIVE DIAGNOSES: 1. A 68-year-old male with history of benign prostatic hypertrophy, prior history of urinary retention requiring Alvarado catheter. 2. History of bulbar stricture, wide caliber. 3. volume 18 g. ANESTHESIA: LMA. COMPLICATIONS: None apparent. PROCEDURES PERFORMED: Cystoscopy, UroLift implant x4, urethral stricture dilatation, 16-Cong[place]ese Alvarado catheter placement. DISPOSITION: To recovery room in stable condition. INDICATIONS FOR PROCEDURE AND HISTORY: Mr. Ness is a 68-year-old male with history of BPH on medical therapy, prior history of urinary retention, largest PVR 800 mL, requiring indwelling Alvarado catheter. He underwent workup with cystoscopy, chest volume study and presents today for urethral stricture dilatation, UroLift implant. Risks, complications, and indications again reviewed with the patient in detail including, but not limited to, bleeding, pain, infection, chronic pelvic pain, migration of UroLift implant, encrustation, urolithiasis, stricture disease, recurrent sepsis, and bladder perforation was reviewed with the patient in detail, and he desired to proceed. DESCRIPTION OF PROCEDURE: After an informed consent was signed, the patient was taken to the operating room, placed in a dorsal lithotomy position. Broad- spectrum antibiotics were provided. Bilateral RUBÉN hose and SCDs were placed. A 21- Congolese cystoscope was utilized for cystoscopy with a 30- and a 70-degree lens to stage. There was a wide caliber bulbar stricture about 16-Congolese caliber. I was able to pass the scope gently proximal to this. Bilobar hyperplasia of the prostate was noted with high median bar. There was no evidence of intravesical median lobe. The bladder was surveyed with a 30- and a 70-degree lens, demonstrating the UOs about 3 mm proximal to the bladder neck. At this time, we passed a 25-Congolese sheath passively dilating the bulbar stricture. Resolution of the stricture was noted. At this time, we passed a 20-Congolese cystoscope with a 0 degree lens UroLift system with a visual obturator. We again inspected the bladder and subsequently passed our delivery device. Using a 20-degree lateral angle, trigger was released deploying our needle containing the implant on the left side first. This opened the left mid prostate nicely opening the channel anteriorly. This was repeated x3, with total of 4 implants. This demonstrated a good shelf of opening anteriorly. Bladder neck was opened and patent. He had minimal bleeding. We then re-staged his urethral stricture, which demonstrated no evidence of persistent annular narrowing of concern. A 16-Congolese 10 mL catheter was placed without difficulty. Catheter was attached to leg bag. He will follow up with me Saturday for a voiding trial. He is discharged with ciprofloxacin 500 mg one p.o. b.i.d. until followup, Inessa khoury Job ID: [id number] [facility] MEDICAL CENTERJoel
[2018-12-17] MEDS ORDERED: Ondansetron PF 4 MG/2 ML Vial ONE (14:58)
[2018-12-17] MEDS ORDERED: PROPOFOL 200 MG/20 ML VIAL ONE (14:58)
[2018-12-17] MEDS ORDERED: Lidocaine 1% PF 5 ML VIAL ONE (14:58)
[2018-12-17] MEDS ORDERED: Dexamethasone 20 MG/5 ML VIAL ONE (14:58)
== END 2018-12-17 11:24 | disposition home or self-care (01) ==
LOC: SDC 06:39
PROVIDERS: ATTEND Urology
PROC: 0T7D8DZ Dilation of Urethra with Intraluminal Device, Via Natural or Artificial Opening Endoscopic (ICD-10-PCS; principal; 2018-12-17)
DX: N40.1 Benign prostatic hyperplasia with lower urinary tract symptoms (principal); R31.29 Other microscopic hematuria; I10 Essential (primary) hypertension; E78.5 Hyperlipidemia, unspecified; K21.9 Gastro-esophageal reflux disease without esophagitis; F41.9 Anxiety disorder, unspecified; F32.9 Major depressive disorder, single episode, unspecified; F43.10 Post-traumatic stress disorder, unspecified; Z79.899 Other long term (current) drug therapy; Z87.891 Personal history of nicotine dependence
CPT/HCPCS: C1889; C9740; J1100; J1956; J2001; J2405; J2704; J3010

== ENCOUNTER 2019-03-25 10:02 | Outpatient (CLI) | payer MEDICARE, OTHER ==
--- NOTE | 2019-03-25 12:03 | RAD ---
RIBS RIGHT SIDE GREATER THAN OR EQUAL TO 2 VIEWS STANDARD: Date: 03/25/19 HISTORY: Pain under right breast. COMPARISON: Chest radiograph dated 10/11/18. FINDINGS: There are some mild atelectatic changes right middle lobe and right lower lobe. No displaced right-si ded rib fracture. Multiple old right rib fractures. IMPRESSION: Multiple old right-sided rib fractures without acute displaced rib fracture appreciated. No pneumotho rax. POS: [facility]
== END 2019-03-25 10:03 | disposition home or self-care (01) ==
LOC: RAD-FRANK 10:02
PROVIDERS: ATTEND Nurse Practitioner Family
DX: R07.81 Pleurodynia (principal); Z87.81 Personal history of (healed) traumatic fracture

== ENCOUNTER 2019-04-17 13:10 | Emergency (ER) | payer MEDICARE, OTHER ==
--- NOTE | 2019-04-17 14:18 | RAD ---
PORTABLE CHEST: Date: 04/17/19 HISTORY: Syncope. FINDINGS: No evidence of infiltrate. Stranding in the left lower lung suggests atelectasis. No evidence of vasc ular congestion. Heart size within normal range. IMPRESSION: No evidence of acute process. POS: [facility]
[2019-04-17 14:29] LABS: #Eosinphils 0.2 thou/uL (0.0-0.7); #Lymphocytes 1.7 thou/uL (1.20-3.40); #Monocytes 0.5 thou/uL (0.11-0.59); %Basophils 0.8 % (0.0-1.0); %Eosinophils 3.9 % (0.0-10.0); %Lymphocytes 30.6 % (21.0-51.0); %Neutrophils 55.8 % (42.0-75.0); Hemoglobin 14.7 g/dL (14.0-18.0); Mean Corpuscular HGB CONC 34.1 g/dL (32.0-36.0); Mean Corpuscular Volume 93.8 fL (78.0-98.0); Mean Platelet Volume 6.2 fL (7.4-10.4); Platelet Count 181 thou/uL (130-400); RBC Distribution Width 13.1 % (11.5-14.5); Red Blood Cell (RBC) Count 4.61 mill/uL (4.70-6.10); White Blood Cell (WBC) Count 5.5 thou/uL (4.8-10.8)
[2019-04-17 15:19] LABS: Chloride 104 mmol/L (98-107); Potassium 4.6 mmol/L (3.5-5.1); Sodium 137 mmol/L (136-145)
[2019-04-17 15:20] LABS: Calcium 9.2 mg/dL (7.8-10.44); Glucose 78 mg/dL (80-115)
[2019-04-17 15:22] LABS: Anion Gap 14 mmol/L (10-20); Bilirubin, Total 0.5 mg/dL (0.2-1.2); Carbon Dioxide 24 mmol/L (23-31)
[2019-04-17 15:23] LABS: Alkaline Phosphatase 117 U/L (40-110)
[2019-04-17 15:24] LABS: Calc. Creatinine Clearance 0 mL/min (70-130); Estimated GFR-MDRD 69
[2019-04-17 15:25] LABS: BUN (Urea Nitrogen) 6 mg/dL (8.4-25.7)
[2019-04-17 15:26] LABS: ALT (SGPT) 13 U/L (8-55); AST (SGOT) 17 U/L (5-34)
== END 2019-04-17 16:07 | disposition home or self-care (01) ==
LOC: ERS 13:10
DX: R55 Syncope and collapse (principal); I10 Essential (primary) hypertension; F43.10 Post-traumatic stress disorder, unspecified; Z87.891 Personal history of nicotine dependence; Z79.899 Other long term (current) drug therapy; Z86.711 Personal history of pulmonary embolism
CPT/HCPCS: 36415; 71045; 80053; 84484; 85025; 93005

== ENCOUNTER 2019-08-04 10:55 | Emergency (ER) | payer MEDICARE, OTHER ==
[2019-08-04] MEDS ORDERED: Oxymetazoline HCl 0.05% (30 ML BOT) ONE (11:10)
[2019-08-04] MEDS ORDERED: Oxymetazoline HCl 0.05% (30 ML BOT) NS SCH (11:15)
[2019-08-04 11:24] LABS: #Basophils 0.1 thou/uL (0.0-0.2); #Eosinphils 0.1 thou/uL (0.0-0.7); #Lymphocytes 1.7 thou/uL (1.20-3.40); #Monocytes 0.5 thou/uL (0.11-0.59); %Basophils 1.3 % (0.0-1.0); %Eosinophils 1.8 % (0.0-10.0); %Monocytes 8.4 % (0.0-10.0); %Neutrophils 62.5 % (42.0-75.0); Hemoglobin 14.2 g/dL (14.0-18.0); Mean Corpuscular HGB CONC 32.6 g/dL (32.0-36.0); Mean Corpuscular Hemoglobin 30.4 pg (27.0-31.0); Mean Corpuscular Volume 93.2 fL (78.0-98.0); Mean Platelet Volume 6.9 fL (7.4-10.4); Platelet Count 184 thou/uL (130-400); RBC Distribution Width 13.1 % (11.5-14.5); Red Blood Cell (RBC) Count 4.68 mill/uL (4.70-6.10); White Blood Cell (WBC) Count 6.3 thou/uL (4.8-10.8)
== END 2019-08-04 12:05 | disposition home or self-care (01) ==
LOC: ERS 10:55
DX: R04.0 Epistaxis (principal); I10 Essential (primary) hypertension; Z86.73 Personal history of transient ischemic attack (TIA), and cerebral infarction without residual deficits; J18.9 Pneumonia, unspecified organism; Z79.82 Long term (current) use of aspirin; Z79.899 Other long term (current) drug therapy
CPT/HCPCS: 36415; 85025; 99283

== ENCOUNTER 2020-04-19 09:12 | Outpatient (CLI) | payer MEDICARE, OTHER ==
--- NOTE | 2020-04-19 09:28 | RAD ---
EXAM: 3 views of the left shoulder HISTORY: Shoulder pain COMPARISON: None FINDINGS: There is no evidence of acute fracture or dislocation. No degenerative changes are present. No soft tissue swelling is seen. The visualized thorax is unremarkable. IMPRESSION: No evidence of acute osseous abnormality.
== END 2020-04-19 09:13 | disposition home or self-care (01) ==
LOC: RAD-FRANK 09:12
PROVIDERS: ATTEND Nurse Practitioner Family
DX: M25.512 Pain in left shoulder (principal)

== ENCOUNTER 2020-08-02 09:36 | Outpatient (CLI) | payer MEDICARE, OTHER ==
--- NOTE | 2020-08-02 12:18 | MRI ---
MULTI PARAMETRIC MRI OF THE PELVIS (PROSTATE) WITH AND WITHOUT IV CONTRAST WITH REVIEW ON INDEPENDENT 3-D WORKSTATION: HISTORY: Prostate cancer. PSA 9.05. Biopsy 2.5 months ago. Biopsy showed prostatic adenocarcinoma, Gl hai score 3+3 = 6 at left medial base. COMPARISON: None FINDINGS: PROSTATE: The prostate gland measures 3.9 x 4.0 x 5.4 cm with a volume of 44 cc. PSA density measures 0.21. PERIPHERAL ZONE: No focal abnormal areas of restricted diffusion is seen to suggest malignant process . TRANSITIONAL ZONE: No lentiform area of abnormally decreased T2 signal is seen to suggest a malignant process. There is artifact from Uronav procedure in the central zone. No focal arterial enhancing mass is seen. Prostatic capsule is intact. The seminal vesicles are intact. LYMPH NODES: No lymphadenopathy is seen. SOFT TISSUES: Pelvic sidewall is normal. No abnormality of the visualized rectum is seen. BONES: No abnormal areas of signal replacement on the T1-weighted sequences are seen to suggest osseo us metastatic disease. There is artifact from metallic hardware in the left proximal femur IMPRESSION: PI-RADS 2: Low (clinically significant prostate cancer is unlikely to be present).
== END 2020-08-02 09:37 | disposition home or self-care (01) ==
LOC: TBSIIMAG 09:36
PROVIDERS: ATTEND Urology
DX: C61 Malignant neoplasm of prostate (principal)
CPT/HCPCS: 72197

== ENCOUNTER 2021-05-17 15:55 | Outpatient (CLI) | payer MEDICARE, OTHER | END 2021-05-17 15:56 | disposition home or self-care (01) | LOC: RAD-FRANK 15:55 | PROVIDERS: ATTEND Nurse Practitioner Family | DX: R50.9 Fever, unspecified (principal); R91.8 Other nonspecific abnormal finding of lung field | CPT/HCPCS: 71046 ==

== ENCOUNTER 2021-05-30 13:37 | Outpatient (CLI) | payer MEDICARE, OTHER ==
[~2021-05-30 13:37] MED LIST: Magnevist 469MG/ML 20 ML VIAL ONE
== END 2021-05-30 13:38 | disposition home or self-care (01) ==
LOC: TBSIIMAG 13:37
PROVIDERS: ATTEND Urology
DX: C61 Malignant neoplasm of prostate (principal)
CPT/HCPCS: 72197; A9579

== ENCOUNTER 2021-07-07 10:29 | Outpatient (CLI) | payer MEDICARE, OTHER ==
[2021-07-07 12:41] LABS: Bilirubin Neg (Negative); Blood, Urine Negative (Negative); Clarity Clear (Clear); Glucose, Urine (Dipstick) Normal (Negative); Ketone, Urine Negative (Negative); Leukocyte 25 (Negative); Nitrite Negative (Negative); Protein, Urine (Dipstick) 15 mg/dl (Neg-Trace)
[2021-07-07 12:42] LABS: Hemoglobin 15.6 g/dL (13.5-17.5); Mean Corpuscular HGB CONC 32.8 g/dL (32.0-36.0); Mean Corpuscular Hemoglobin 29.2 pg (27.0-33.0); Mean Platelet Volume 9.7 fl (7.4-10.4); Platelet Count 227 10x3/uL (150-450); RBC Distribution Width 16.6 % (11.5-14.5); Red Blood Cell (RBC) Count 5.35 10x6/uL (4.32-5.72); White Blood Cell (WBC) Count 7.1 10x3/uL (3.5-10.5)
[2021-07-07 12:55] LABS: Bacteria/HPF None Seen HPF (None Seen); RBC/HPF 0-3 HPF (0-3); Squamous Epithelial 0-3 HPF (0-3); WBC/HPF 0-3 HPF (0-3)
[2021-07-07 12:58] LABS: PTT 25.2 sec (22.0-33.0); Prothrombin Time 11.3 sec (9.5-12.1)
[2021-07-07 13:00] LABS: Anion Gap 15 mmol/L (10-20); BUN (Urea Nitrogen) 8 mg/dL (8.4-25.7); Calc. Creatinine Clearance 0 mL/min (70-130); Calcium 8.8 mg/dL (7.8-10.44); Carbon Dioxide 23 mmol/L (23-31); Chloride 107 mmol/L (98-107); Glucose 87 mg/dL (83-110); Potassium 4.4 mmol/L (3.5-5.1); Sodium 141 mmol/L (136-145)
[2021-07-08 17:02] LABS: SARS-CoV-2 PCR by NAA Not Detected (NotDetected)
== END 2021-07-07 10:30 | disposition home or self-care (01) ==
LOC: LABBT 10:29
PROVIDERS: ATTEND Urology
DX: Z01.818 Encounter for other preprocedural examination (principal); Z20.822 Contact with and (suspected) exposure to COVID-19
CPT/HCPCS: 71046; 80048; 81001; 85027; 85610; 85730; 87086; 93005; U0003; U0005; 93010

== ENCOUNTER 2021-07-12 06:02 | Day surgery (SDC) | payer MEDICARE, OTHER ==
[2021-07-05 15:06] VITALS: BMI 28.3
[2021-07-12] MEDS ORDERED: Levofloxacin 500 mg/D5W 100 ml Premix Bag ONE (07:10)
[2021-07-12] MEDS ORDERED: cefTRIAXone\\ROCEPHIN 2 GM VIAL ONE (07:11)
[2021-07-12] MEDS ORDERED: Sodium Chloride 0.9% 100 ML ONE (07:11)
[2021-07-12] MEDS ORDERED: Fentanyl 100 MCG/2 ML VIAL ONE (07:20)
[2021-07-12] MEDS ORDERED: Propofol 500 MG/50 ML VIAL ONE (07:20)
[2021-07-12] MEDS ORDERED: Midazolam HCl 2 mg/2 ml Vial ONE (07:20)
[2021-07-12] MEDS ORDERED: PROPOFOL 200 MG/20 ML VIAL ONE (07:31)
[2021-07-12] MEDS ORDERED: Tamsulosin HCl 0.4 MG CAP ONE (08:33)
[2021-07-12] MEDS ORDERED: Phenazopyridine HCl 100 MG TAB ONE (08:55)
== END 2021-07-12 09:50 | disposition home or self-care (01) ==
LOC: SDC 06:02
PROVIDERS: ATTEND Urology
PROC: 0VB03ZX Excision of Prostate, Percutaneous Approach, Diagnostic (ICD-10-PCS; principal; 2021-07-12)
DX: C61 Malignant neoplasm of prostate (principal); N40.1 Benign prostatic hyperplasia with lower urinary tract symptoms; R33.8 Other retention of urine; N13.8 Other obstructive and reflux uropathy; I10 Essential (primary) hypertension; K21.9 Gastro-esophageal reflux disease without esophagitis; E78.5 Hyperlipidemia, unspecified; I73.9 Peripheral vascular disease, unspecified; F10.10 Alcohol abuse, uncomplicated; N35.919 Unspecified urethral stricture, male, unspecified site; N52.9 Male erectile dysfunction, unspecified; Z86.16 Personal history of COVID-19; Z87.891 Personal history of nicotine dependence; Z79.82 Long term (current) use of aspirin; Z79.899 Other long term (current) drug therapy
CPT/HCPCS: 88341; 88342; G0416; J0696; J1956; J2250; J2704; J3010; J3490

== ENCOUNTER 2022-03-27 09:49 | Outpatient (CLI) | payer MEDICARE, OTHER | END 2022-03-27 09:50 | disposition home or self-care (01) | LOC: RAD-FRANK 09:49 | PROVIDERS: ATTEND Nurse Practitioner Family | DX: R05.1 Acute cough (principal) | CPT/HCPCS: 71046 ==

== ENCOUNTER 2022-04-10 11:38 | Outpatient (CLI) | payer MEDICARE, OTHER ==
[2022-04-10] MEDS ORDERED: Iopamidol 370 76% 100 ML VIAL ONE (13:54)
== END 2022-04-10 11:39 | disposition home or self-care (01) ==
LOC: CT 11:38
PROVIDERS: ATTEND Nurse Practitioner Family
DX: R91.1 Solitary pulmonary nodule (principal); J98.4 Other disorders of lung; I71.20 Thoracic aortic aneurysm, without rupture, unspecified; I74.11 Embolism and thrombosis of thoracic aorta
CPT/HCPCS: 71260; 82565; Q9967

== ENCOUNTER 2022-07-03 15:36 | Outpatient (CLI) | payer MEDICARE, OTHER | END 2022-07-03 15:37 | disposition home or self-care (01) | LOC: RAD-FRANK 15:36 | PROVIDERS: ATTEND Nurse Practitioner Family | DX: R05.2 Subacute cough (principal) | CPT/HCPCS: 71046 ==

== ENCOUNTER 2023-02-14 08:51 | Outpatient (CLI) | payer MEDICARE, OTHER ==
[2023-02-14] MEDS ORDERED: Iopamidol 370 76% 100 ML VIAL ONE (10:28)
== END 2023-02-14 08:52 | disposition home or self-care (01) ==
LOC: CT 08:51
PROVIDERS: ATTEND Urology
DX: C61 Malignant neoplasm of prostate (principal); N28.1 Cyst of kidney, acquired; R31.0 Gross hematuria; I71.40 Abdominal aortic aneurysm, without rupture, unspecified; K80.20 Calculus of gallbladder without cholecystitis without obstruction; Z92.3 Personal history of irradiation
CPT/HCPCS: 74178; 82565

== ENCOUNTER 2023-02-27 13:51 | Outpatient (CLI) | payer MEDICARE, OTHER | END 2023-02-27 13:52 | disposition home or self-care (01) | LOC: RAD-FRANK 13:51 | PROVIDERS: ATTEND Nurse Practitioner Family | DX: R10.9 Unspecified abdominal pain (principal) | CPT/HCPCS: 74018 ==

== ENCOUNTER 2023-07-12 12:14 | Emergency (ER) | payer MEDICARE, OTHER ==
[2023-07-12] MEDS ORDERED: Diazepam 5 MG TAB ONE (12:41)
[2023-07-12] MEDS ORDERED: Ketorolac Tromethamine 30 MG (1 mL) VIAL ONE (12:41)
== END 2023-07-12 14:13 | disposition home or self-care (01) ==
LOC: ERS 12:14
DX: M43.6 Torticollis (principal); I10 Essential (primary) hypertension; J44.9 Chronic obstructive pulmonary disease, unspecified; Z87.891 Personal history of nicotine dependence; Z79.899 Other long term (current) drug therapy; Z79.82 Long term (current) use of aspirin
CPT/HCPCS: 96372; 99283; J1885

== ENCOUNTER 2023-09-29 15:34 | Emergency (ER) | payer MEDICARE, OTHER ==
[~2023-09-29 15:34] MED LIST changes: +Iopamidol-370 76% 500 ML MDV (1 ML CHARGE) ONE; -Magnevist 469MG/ML 20 ML VIAL ONE
[2023-09-29] MEDS ORDERED: Morphine 4 MG/ML VIAL ONE (16:36)
[2023-09-29 17:12] LABS: Bacteria/HPF None Seen HPF (None Seen); Bilirubin Negative (Negative); Blood, Urine Negative (Negative); CAUTI Indications for Culture Pelvic or flank pain; Clarity Clear (Clear); Glucose, Urine (Dipstick) Normal (Negative); Ketone, Urine Negative (Negative); Leukocyte Negative Leu/uL (Negative); Nitrite Negative (Negative); Protein, Urine (Dipstick) Negative (Neg-Trace); RBC/HPF 0-3 HPF (0-3); Specific Gravity, Urine 1.012 (1.002-1.036); Squamous Epithelial 0-3 HPF (0-3); Urobilinogen Normal mg/dL (Less than 2); WBC/HPF 0-3 HPF (0-3)
[2023-09-29 17:14] LABS: Urine Culture Reflex No No
[2023-09-29 17:16] LABS: #Basophils 0.06 10x3/uL (0.0-0.2); %Basophils 0.8 % (0.0-1.0); %Eosinophils 4.7 % (0.0-10.0); %Lymphocytes 18.3 % (21.0-51.0); %Monocytes 8.8 % (0.0-10.0); Hematocrit 45.3 % (42.0-52.0); Hemoglobin 15.1 g/dL (14.0-18.0); Mean Corpuscular HGB CONC 33.3 g/dL (32.0-36.0); Mean Corpuscular Hemoglobin 29.7 pg (27.0-31.0); Mean Corpuscular Volume 89.2 fL (78.0-98.0); Mean Platelet Volume 10.1 fL (7.4-10.4); Platelet Count 132 10x3/uL (130-400); RBC Distribution Width 14.7 % (11.5-14.5); Red Blood Cell (RBC) Count 5.08 mill/uL (4.70-6.10)
[2023-09-29 17:28] LABS: Troponin I Less than 0.010 ng/mL (< 0.028)
[2023-09-29 17:38] LABS: ALT (SGPT) 11 U/L (8-55); AST (SGOT) 19 U/L (5-34); Albumin 3.8 g/dL (3.4-4.8); Alkaline Phosphatase 94 U/L (40-110); Anion Gap 13 mmol/L (10-20); BUN (Urea Nitrogen) 10 mg/dL (8.4-25.7); Bilirubin, Total 0.8 mg/dL (0.2-1.2); Calc. Creatinine Clearance 0 mL/min (70-130); Calcium 9.2 mg/dL (7.8-10.44); Carbon Dioxide 29 mmol/L (23-31); Chloride 101 mmol/L (98-107); Estimated GFR 65; Globulin 3.3 g/dL (2.4-3.5); Glucose 89 mg/dL (83-110); Lipase 6 U/L (8-78); Potassium 5.1 mmol/L (3.5-5.1); Protein, Total 7.1 g/dL (5.8-8.1); Sodium 138 mmol/L (136-145)
== END 2023-09-29 20:15 | disposition home or self-care (01) ==
LOC: ERS 15:34
DX: J18.9 Pneumonia, unspecified organism (principal); I71.9 Aortic aneurysm of unspecified site, without rupture; R10.12 Left upper quadrant pain; I10 Essential (primary) hypertension; J44.9 Chronic obstructive pulmonary disease, unspecified; R54 Age-related physical debility; Z87.891 Personal history of nicotine dependence; Z79.82 Long term (current) use of aspirin; Z79.01 Long term (current) use of anticoagulants; Z79.899 Other long term (current) drug therapy; Z86.718 Personal history of other venous thrombosis and embolism
CPT/HCPCS: 36415; 71045; 74177; 80053; 81001; 83605; 83690; 84484; 85025; 93005; 94760; 96361; 96374; J2270; Q9967

== ENCOUNTER 2023-10-29 10:00 | Inpatient (IN) | payer MEDICARE, OTHER ==
[2023-10-29 12:47] LABS: Hematocrit 44.1 % (38.8-50.0); Hemoglobin 14.9 g/dL (13.5-17.5); Mean Corpuscular HGB CONC 33.8 g/dL (32.0-36.0); Mean Corpuscular Hemoglobin 30.3 pg (27.0-33.0); Mean Corpuscular Volume 89.8 fl (81.2-95.1); Mean Platelet Volume 10.1 fl (7.4-10.4); Platelet Count 143 10x3/uL (150-450); RBC Distribution Width 14.2 % (11.5-14.5); Red Blood Cell (RBC) Count 4.91 10x6/uL (4.32-5.72); White Blood Cell (WBC) Count 5.3 10x3/uL (3.5-10.5)
[2023-10-29 13:07] LABS: Anion Gap 12 mmol/L (10-20); BUN (Urea Nitrogen) 8 mg/dL (8.4-25.7); Calc. Creatinine Clearance 0 mL/min (70-130); Calcium 8.9 mg/dL (7.8-10.44); Carbon Dioxide 27 mmol/L (23-31); Chloride 104 mmol/L (98-107); Estimated GFR 70; Glucose 88 mg/dL (83-110); Potassium 4.3 mmol/L (3.5-5.1); Sodium 139 mmol/L (136-145)
[2023-10-31] MEDS ORDERED: Bupivacaine PF 0.5% 30 ML VIAL ONE (06:36)
[2023-10-31] MEDS ORDERED: Heparin 10,000 UNITS/ 10 ML VIAL ONE ×2 (06:36→07:43)
[2023-10-31] MEDS ORDERED: EPINEPHrine 1 MG/ML VIAL ONE (06:36)
[2023-10-31] MEDS ORDERED: fentaNYL PF 100 MCG/2 ML SYRINGE ONE (06:49)
[2023-10-31] MEDS ORDERED: Rocuronium Bromide 10 MG/ML (10ML VIAL) ONE (06:49)
[2023-10-31] MEDS ORDERED: PROPOFOL 20 ML ONE (06:50)
[2023-10-31] MEDS ORDERED: Midazolam HCl 2 mg/2 ml Vial ONE (06:50)
[2023-10-31] MEDS ORDERED: Lidocaine 1% PF 5 ML VIAL ONE (06:54)
[2023-10-31] MEDS ORDERED: Ondansetron PF 4 MG/2 ML Vial ONE (06:54)
[2023-10-31] MEDS ORDERED: SUCCINYLCHOLINE/SOD CL,ISO/PF 200 MG/10 ML SYRINGE FS ONE (06:54)
[2023-10-31] MEDS ORDERED: Dexamethasone 20 MG/5 ML VIAL ONE (06:54)
[2023-10-31] MEDS ORDERED: NEOSTIGMINE 3 MG/3 ML SYR 3 MG/3 ML SYRINGE ONE (06:55)
[2023-10-31] MEDS ORDERED: PHENYLEPHRINE-NS 100 MCG/ML 10 ML SYRINGE ONE (06:55)
[2023-10-31] MEDS ORDERED: Glycopyrrolate 0.2 MG/ML 5 ML SYRINGE ONE (06:55)
[2023-10-31] MEDS ORDERED: Ondansetron ODT 4 MG TAB ONE (07:06)
[2023-10-31] MEDS ORDERED: Sodium Chloride 0.9% 100 ML ONE (07:30)
[2023-10-31] MEDS ORDERED: CEFAZOLIN 2 GM VIAL ONE (07:30)
[2023-10-31] MEDS ORDERED: Protamine Sulfate 50 MG/5 ML VIAL ONE ×2 (09:08→09:45)
[2023-10-31] MEDS ORDERED: Nitroglycerin 50 MG/250 ML BOT 250 ML ONE (09:27)
[2023-10-31] MEDS ORDERED: Albumin 5% 500 ML ONE (09:32)
[2023-10-31] MEDS ORDERED: Calcium Chloride 1 GM/10 ML Abboject SYRINGE ONE (09:32)
[2023-10-31] MEDS ORDERED: ePHEDrine Sulfate 50 MG/10 ML VIAL ONE (09:44)
[2023-10-31] MEDS ORDERED: Acetaminophen 325 MG TAB PO PRN (10:54)
[2023-10-31] MEDS ORDERED: NOREPINEPHRINE 8 MG/250 ML-D5W 250 ML IVPB PRN (10:54)
[2023-10-31] MEDS ORDERED: Albuterol 200 PUFF (6.7GM INHALER) INH PRN (10:54)
[2023-10-31] MEDS ORDERED: traMADol HCl 50 MG TAB PO PRN (10:54)
[2023-10-31] MEDS ORDERED: Ondansetron PF 4 MG/2 ML Vial IVP PRN (10:54)
[2023-10-31] MEDS ORDERED: hydrALAZINE 20 MG/ML VIAL SLOW IVP PRN (10:54)
[2023-10-31 10:59] VITALS: BMI 27.9
[2023-10-31] MEDS: Sodium Chloride 0.9% 1,000 ML IV SCH (11:36)
[2023-10-31] MEDS: traMADol HCl 50 MG TAB PO PRN (12:33)
[2023-10-31] MEDS: Nitroglycerin 50 MG/250 ML BOT 250 ML IVPB PRN (12:34)
[2023-10-31] MEDS: CEFAZOLIN 2 GM in Sodium Chloride 0.9% 100 ML IVPB SCH (15:34)
[2023-10-31] MEDS ORDERED: Non-Formulary Item 1 EACH (Ranitidine Hcl [Ranitidine Hcl] 150 MG Tablet) PO SCH (21:00)
[2023-10-31] MEDS: Timolol 0.5% Ophth Soln 5 ml Bottle EA EYE SCH (21:10)
[2023-10-31] MEDS: traZODone HCl 50 MG TAB PO SCH (21:11)
[2023-10-31] MEDS: Finasteride 5 MG TAB PO SCH (21:11)
[2023-10-31] MEDS: Atorvastatin Calcium 10 MG TAB PO SCH (21:11)
[2023-10-31] MEDS: Tamsulosin HCl 0.4 MG CAP PO SCH (21:11)
[2023-10-31] MEDS: Pregabalin 75 MG CAP PO SCH (21:11)
[2023-10-31] MEDS: Nortriptyline HCl 25 MG CAP PO SCH (21:12)
[2023-11-01 05:53] LABS: Hematocrit 27.8 % (42.0-52.0); Hemoglobin 9.2 g/dL (14.0-18.0); Mean Corpuscular HGB CONC 33.1 g/dL (32.0-36.0); Mean Corpuscular Hemoglobin 29.5 pg (27.0-31.0); Mean Corpuscular Volume 89.1 fL (78.0-98.0); Mean Platelet Volume 11.1 fL (7.4-10.4); Platelet Count 114 10x3/uL (130-400); Red Blood Cell (RBC) Count 3.12 mill/uL (4.70-6.10)
[2023-11-01 06:23] LABS: Platelet Adequacy Comment Platelets Decreased; Polychromasia SLIGHT = 2-3 cells HPF (0-2); RBC Morphology Within Normal Limits
[2023-11-01 06:26] LABS: Anion Gap 12 mmol/L (10-20); BUN (Urea Nitrogen) 7 mg/dL (8.4-25.7); Calc. Creatinine Clearance 78 mL/min (70-130); Calcium 8.4 mg/dL (7.8-10.44); Carbon Dioxide 23 mmol/L (23-31); Chloride 107 mmol/L (98-107); Estimated GFR 75; Glucose 119 mg/dL (83-110); Potassium 4.4 mmol/L (3.5-5.1); Sodium 138 mmol/L (136-145)
[2023-11-01 08:05] VITALS: TEMP 97.9
[2023-11-01] MEDS: FLUoxetine HCl 20 MG CAP PO SCH (08:57)
[2023-11-01] MEDS: Aspirin Chewable 81 MG TAB PO SCH (08:57)
[2023-11-01] MEDS ORDERED: LAMOTRIGINE 25 MG PO SCH (09:00)
[2023-11-01] MEDS: Cholecalciferol 1,000 UNITS (25 MCG) TAB PO SCH (09:05)
[2023-11-01 11:03] LABS: Actual Bicarbonate (HCO3a) 22.5 mEq/L (22-28); Analyzer IN Cardio OR; Base Excess (BEa) -4.4 mEq/L (-2.0 to +3.0); Calcium, Ionized (arterial) 1.14 mmol/L (1.12-1.30); Carboxyhemoglobin (COHb) 0.9 gm% (0.0-3.0); Hematocrit-ABG 40 % (42.0-52.0); Hemoglobin (Hb) 13.7 g/dL (14.0-18.0); Potassium - ABG Lab 4.86 mmol/L (3.70-5.30); pH, Arterial 7.288 (7.35-7.45)
== END 2023-11-01 09:43 | disposition home or self-care (01) | DRG 269 ==
LOC: SURG A 10-31 05:57 → EDSTATUS 10-31 10:00 → CCU 10-31 10:21
PROVIDERS: ADMIT Thoracic Surgery (Cardiothoracic Vascular Surgery); ATTEND Thoracic Surgery (Cardiothoracic Vascular Surgery)
PROC: 04V03DZ Restriction of Abdominal Aorta with Intraluminal Device, Percutaneous Approach (ICD-10-PCS; principal; 2023-10-31)
PROC: B41D1ZZ Fluoroscopy of Aorta and Bilateral Lower Extremity Arteries using Low Osmolar Contrast (ICD-10-PCS; 2023-10-31)
DX: I71.10 Thoracic aortic aneurysm, ruptured, unspecified (principal); I48.91 Unspecified atrial fibrillation; J44.9 Chronic obstructive pulmonary disease, unspecified; E78.5 Hyperlipidemia, unspecified; I73.9 Peripheral vascular disease, unspecified; F32.9 Major depressive disorder, single episode, unspecified; F41.9 Anxiety disorder, unspecified; H40.9 Unspecified glaucoma; Z79.01 Long term (current) use of anticoagulants; Z86.16 Personal history of COVID-19; Z86.718 Personal history of other venous thrombosis and embolism; Z86.711 Personal history of pulmonary embolism; Z87.891 Personal history of nicotine dependence; Z01.810 Encounter for preprocedural cardiovascular examination; I71.40 Abdominal aortic aneurysm, without rupture, unspecified
CPT/HCPCS: 36430; 71045; 80048; 82805; 85025; 85027; 86850; 86900; 86901; 93005; 93010; C1751; C1760; C1769; C1889; J0171; J0665; J1100; J1642; J1644; J2250; J2405; J2704; J2720; J3490; J7050; P9045; Q0162

== ENCOUNTER 2023-11-18 17:07 | Observation (INO) | payer MEDICARE, OTHER ==
[2023-11-18 18:21] LABS: #Basophils 0.08 10x3/uL (0.0-0.2); %Eosinophils 1.5 % (0.0-10.0); %Lymphocytes 16.9 % (21.0-51.0); %Neutrophils 73.2 % (42.0-75.0); Mean Corpuscular HGB CONC 32.4 g/dL (32.0-36.0); Mean Corpuscular Hemoglobin 27.9 pg (27.0-31.0); Mean Platelet Volume 9.6 fL (7.4-10.4); Platelet Count 433 10x3/uL (130-400)
[2023-11-18 18:39] LABS: ALT (SGPT) 21 U/L (8-55); AST (SGOT) 25 U/L (5-34); Albumin 3.4 g/dL (3.4-4.8); Alkaline Phosphatase 101 U/L (40-110); Anion Gap 17 mmol/L (10-20); BUN (Urea Nitrogen) 20 mg/dL (8.4-25.7); Bilirubin, Total 0.6 mg/dL (0.2-1.2); Calc. Creatinine Clearance 0 mL/min (70-130); Calcium 10.1 mg/dL (7.8-10.44); Carbon Dioxide 24 mmol/L (23-31); Chloride 107 mmol/L (98-107); Estimated GFR 53; Globulin 4.6 g/dL (2.4-3.5); Glucose 102 mg/dL (83-110); Lipase 13 U/L (8-78); Potassium 4.3 mmol/L (3.5-5.1); Sodium 144 mmol/L (136-145)
[2023-11-18 18:44] LABS: Troponin I 0.015 ng/mL (< 0.028)
[2023-11-18] MEDS ORDERED: fentaNYL 50 mcg/mL 1 mL Vial ONE (18:57)
[2023-11-18] MEDS ORDERED: Gabapentin 300 MG CAP ONE (20:24)
[2023-11-18 23:22] LABS: Troponin I 0.011 ng/mL (< 0.028)
[2023-11-19] MEDS ORDERED: Ondansetron PF 4 MG/2 ML Vial IVP PRN (00:54)
[2023-11-19] MEDS ORDERED: Nitroglycerin 0.4 MG TAB (25 Tab Bottle) SL PRN (00:54)
[2023-11-19] MEDS ORDERED: Acetaminophen 325 MG TAB PO PRN (00:54)
[2023-11-19] MEDS ORDERED: Ondansetron ODT 4 MG TAB PO PRN (00:54)
[2023-11-19] MEDS ORDERED: Aspirin 325 mg Enteric Coated Tablet PO SCH (09:00)
== END 2023-11-19 01:40 | disposition left against medical advice (07) ==
LOC: ERS 17:07 → ERHOLD 23:35
PROVIDERS: ADMIT Internal Medicine; ATTEND Internal Medicine
DX: R07.9 Chest pain, unspecified (principal); I71.10 Thoracic aortic aneurysm, ruptured, unspecified; J44.9 Chronic obstructive pulmonary disease, unspecified; I10 Essential (primary) hypertension; J18.9 Pneumonia, unspecified organism; C61 Malignant neoplasm of prostate; Z98.890 Other specified postprocedural states; Z86.718 Personal history of other venous thrombosis and embolism; Z87.891 Personal history of nicotine dependence
CPT/HCPCS: 71045; 71275; 80053; 83690; 83880; 84484 ×2; 85025; 85379; 93005; 94760; J3010; 36415; Q9967

== ENCOUNTER 2023-11-22 11:17 | Inpatient (IN) | payer MEDICARE, OTHER ==
[2023-11-22 12:37] LABS: #Basophils 0.06 10x3/uL (0.0-0.2); %Basophils 0.8 % (0.0-1.0); %Lymphocytes 13.1 % (21.0-51.0); %Monocytes 6.9 % (0.0-10.0); %Neutrophils 75.9 % (42.0-75.0); Hematocrit 30.7 % (42.0-52.0); Hemoglobin 9.5 g/dL (14.0-18.0); Mean Corpuscular HGB CONC 30.9 g/dL (32.0-36.0); Mean Corpuscular Hemoglobin 28.5 pg (27.0-31.0); Mean Corpuscular Volume 92.2 fL (78.0-98.0); Mean Platelet Volume 9.9 fL (7.4-10.4); Platelet Count 258 10x3/uL (130-400); RBC Distribution Width 14.1 % (11.5-14.5); Red Blood Cell (RBC) Count 3.33 mill/uL (4.70-6.10)
[2023-11-22 12:55] LABS: ALT (SGPT) 17 U/L (8-55); AST (SGOT) 18 U/L (5-34); Albumin 2.9 g/dL (3.4-4.8); Alkaline Phosphatase 86 U/L (40-110); Anion Gap 16 mmol/L (10-20); BUN (Urea Nitrogen) 38 mg/dL (8.4-25.7); Bilirubin, Total 0.7 mg/dL (0.2-1.2); CK (CPK) 125 U/L (30-200); Calc. Creatinine Clearance 0 mL/min (70-130); Calcium 8.6 mg/dL (7.8-10.44); Carbon Dioxide 20 mmol/L (23-31); Chloride 106 mmol/L (98-107); Estimated GFR 21; Globulin 3.8 g/dL (2.4-3.5); Glucose 85 mg/dL (83-110); Lipase 15 U/L (8-78); Magnesium 2.2 mg/dL (1.6-2.6); Protein, Total 6.7 g/dL (5.8-8.1); Sodium 138 mmol/L (136-145)
[2023-11-22 12:58] LABS: Troponin I 0.032 ng/mL (< 0.028)
[2023-11-22] MEDS ORDERED: Naloxone HCl 0.4 mg/ml Vial ONE (13:51)
[2023-11-22] MEDS ORDERED: Ondansetron PF 4 MG/2 ML Vial IVP PRN ×2 (14:04→15:13)
[2023-11-22] MEDS ORDERED: Ondansetron ODT 4 MG TAB SL PRN (14:04)
[2023-11-22] MEDS ORDERED: Acetaminophen 325 MG TAB PO PRN (14:04)
[2023-11-22 14:14] LABS: Acetaminophen Less than 10 mcg/mL (10.0-30.0); Alcohol Less than 10.0 mg/dL (Less than 10); Salicylate Less than 8.0 mg/dL (15.0-30.0)
[2023-11-22 15:05] LABS: Bacteria/HPF None Seen HPF (None Seen); Bilirubin Negative (Negative); Blood, Urine Negative (Negative); CAUTI Indications for Culture Alt mental st,lethar; Clarity Clear (Clear); Glucose, Urine (Dipstick) Normal (Negative); Ketone, Urine Negative (Negative); Leukocyte Negative Leu/uL (Negative); Nitrite Negative (Negative); Protein, Urine (Dipstick) Negative (Neg-Trace); RBC/HPF 0-3 HPF (0-3); Specific Gravity, Urine 1.021 (1.002-1.036); Squamous Epithelial None Seen HPF (0-3); Urobilinogen Normal mg/dL (Less than 2); WBC/HPF 0-3 HPF (0-3)
[2023-11-22 15:08] LABS: Urine Culture Reflex No No
[2023-11-22 15:11] LABS: Amphetamine Not Detected (NotDetected); Barbiturates Screen Not Detected (NotDetected); Benzodiazepine Screen Not Detected (NotDetected); Cocaine Metabolite Screen Not Detected (NotDetected); Methadone Not Detected (NotDetected); Methamphetamine Not Detected (NotDetected); Opiate Screen Detected (NotDetected); Oxycodone Screen Not Detected (NotDetected); Phencyclidine (PCP) Not Detected (NotDetected); THC/Cannabinoid Screen Not Detected (NotDetected); Tricyclic Screen Not Detected (NotDetected)
[2023-11-22] MEDS ORDERED: Ipratropium/Albuterol 3 ML NEB NEB PRN (15:20)
[2023-11-22 16:16] VITALS: BMI 26.8
[2023-11-22] MEDS: Sodium Chloride 0.9% 1,000 ML IV SCH (17:35)
[2023-11-22] MEDS: Aspirin 325 MG TAB PO SCH (17:35)
[2023-11-22 18:09] LABS: Troponin I 0.018 ng/mL (< 0.028)
[2023-11-22] MEDS: Timolol 0.5% Ophth Soln 5 ml Bottle EA EYE SCH (20:17)
[2023-11-22] MEDS: Apixaban 5 MG TAB PO SCH (20:18)
[2023-11-22 21:25] LABS: Troponin I 0.019 ng/mL (< 0.028)
[2023-11-23 04:29] LABS: #Basophils 0.05 10x3/uL (0.0-0.2); %Basophils 0.8 % (0.0-1.0); %Eosinophils 4.9 % (0.0-10.0); %Monocytes 6.9 % (0.0-10.0); %Neutrophils 66.2 % (42.0-75.0); Hematocrit 38.5 % (42.0-52.0); Hemoglobin 12.6 g/dL (14.0-18.0); Mean Corpuscular HGB CONC 32.7 g/dL (32.0-36.0); Mean Corpuscular Volume 85.6 fL (78.0-98.0); Mean Platelet Volume 10.3 fL (7.4-10.4); Platelet Count 240 10x3/uL (130-400)
[2023-11-23 04:38] LABS: Anion Gap 19 mmol/L (10-20); BUN (Urea Nitrogen) 27 mg/dL (8.4-25.7); Calc. Creatinine Clearance 45 mL/min (70-130); Calcium 9.3 mg/dL (7.8-10.44); Carbon Dioxide 17 mmol/L (23-31); Chloride 111 mmol/L (98-107); Estimated GFR 44; Glucose 63 mg/dL (83-110); Potassium 4.8 mmol/L (3.5-5.1); Sodium 142 mmol/L (136-145)
[2023-11-23] MEDS: Aspirin Chewable 81 MG TAB PO SCH (08:13)
[2023-11-23] MEDS: Dextrose 50% Abboject 50 ML SYRINGE SLOW IVP SCH (11:16)
[2023-11-23] MEDS: Lactated Ringer's 1,000 ML IV SCH (11:16)
[2023-11-23 12:54] VITALS: BMI 26.8
[2023-11-23] MEDS: traZODone HCl 50 MG TAB PO SCH (23:55)
[2023-11-24] MEDS: Acetaminophen 325 MG TAB PO PRN (01:53)
[2023-11-24 09:20] LABS: #Basophils 0.04 10x3/uL (0.0-0.2); %Basophils 0.9 % (0.0-1.0); %Eosinophils 6.7 % (0.0-10.0); %Lymphocytes 28.7 % (21.0-51.0); %Monocytes 7.5 % (0.0-10.0); Hematocrit 30.6 % (42.0-52.0); Hemoglobin 10.1 g/dL (14.0-18.0); Mean Corpuscular Hemoglobin 28.8 pg (27.0-31.0); Mean Corpuscular Volume 87.2 fL (78.0-98.0); Mean Platelet Volume 10.2 fL (7.4-10.4); Platelet Count 253 10x3/uL (130-400); RBC Distribution Width 13.7 % (11.5-14.5); Red Blood Cell (RBC) Count 3.51 mill/uL (4.70-6.10)
[2023-11-24 09:41] LABS: Anion Gap 14 mmol/L (10-20); BUN (Urea Nitrogen) 11 mg/dL (8.4-25.7); Calc. Creatinine Clearance 86 mL/min (70-130); Calcium 9.3 mg/dL (7.8-10.44); Carbon Dioxide 18 mmol/L (23-31); Chloride 111 mmol/L (98-107); Estimated GFR 91; Glucose 81 mg/dL (83-110); Potassium 4.1 mmol/L (3.5-5.1); Sodium 139 mmol/L (136-145)
[2023-11-24] MEDS ORDERED: Methocarbamol 500 MG TAB PO PRN (12:01)
[2023-11-24] MEDS: traZODone HCl 50 MG TAB PO SCH (20:36)
[2023-11-24] MEDS: Atorvastatin Calcium 10 MG TAB PO SCH (20:37)
[2023-11-24] MEDS: Pregabalin 75 MG CAP PO SCH (20:37)
[2023-11-24] MEDS: Tamsulosin HCl 0.4 MG CAP PO SCH (20:37)
[2023-11-24] MEDS: Metoprolol Tartrate 25 MG TAB PO SCH (20:37)
[2023-11-24] MEDS: Mirtazapine 30 MG TAB PO SCH (20:41)
[2023-11-25 08:02] LABS: #Basophils 0.06 10x3/uL (0.0-0.2); %Basophils 1.1 % (0.0-1.0); %Eosinophils 4.4 % (0.0-10.0); %Lymphocytes 27.3 % (21.0-51.0); %Monocytes 7.3 % (0.0-10.0); %Neutrophils 59.7 % (42.0-75.0); Hematocrit 32.7 % (42.0-52.0); Hemoglobin 10.5 g/dL (14.0-18.0); Mean Corpuscular HGB CONC 32.1 g/dL (32.0-36.0); Mean Corpuscular Hemoglobin 28.2 pg (27.0-31.0); Mean Corpuscular Volume 87.9 fL (78.0-98.0); Platelet Count 255 10x3/uL (130-400); RBC Distribution Width 13.7 % (11.5-14.5); Red Blood Cell (RBC) Count 3.72 mill/uL (4.70-6.10)
[2023-11-25 08:23] LABS: Anion Gap 15 mmol/L (10-20); BUN (Urea Nitrogen) 7 mg/dL (8.4-25.7); Calc. Creatinine Clearance 85 mL/min (70-130); Calcium 9.3 mg/dL (7.8-10.44); Carbon Dioxide 20 mmol/L (23-31); Chloride 111 mmol/L (98-107); Estimated GFR 91; Glucose 82 mg/dL (83-110); Sodium 142 mmol/L (136-145)
[2023-11-25] MEDS: DULoxetine 20 MG CAP PO SCH (10:12)
[2023-11-25] MEDS: Famotidine 20 MG TAB PO SCH (10:12)
[2023-11-25] MEDS: Cholecalciferol 1,000 UNITS (25 MCG) TAB PO SCH (10:14)
[2023-11-25 15:02] VITALS: BP 145/87; TEMP 97.8
== END 2023-11-25 15:17 | disposition home or self-care (01) | DRG 280 ==
LOC: ERS 11:17 → IMCU/EMU 14:15 → T4-B 11-23 16:32
PROVIDERS: ADMIT Internal Medicine; ATTEND Internal Medicine
DX: I95.1 Orthostatic hypotension (principal); G93.41 Metabolic encephalopathy; I21.A1 Myocardial infarction type 2; N17.9 Acute kidney failure, unspecified; J96.11 Chronic respiratory failure with hypoxia; K21.9 Gastro-esophageal reflux disease without esophagitis; J44.9 Chronic obstructive pulmonary disease, unspecified; I73.9 Peripheral vascular disease, unspecified; F10.10 Alcohol abuse, uncomplicated; I12.9 Hypertensive chronic kidney disease with stage 1 through stage 4 chronic kidney disease, or unspecified chronic kidney disease; N18.9 Chronic kidney disease, unspecified; G47.33 Obstructive sleep apnea (adult) (pediatric); N40.0 Benign prostatic hyperplasia without lower urinary tract symptoms; Z79.899 Other long term (current) drug therapy; Z79.82 Long term (current) use of aspirin; Z98.890 Other specified postprocedural states; Z87.891 Personal history of nicotine dependence
CPT/HCPCS: 36415; 36416; 51701; 70450; 70551; 71045; 71275; 74174; 80048; 80053; 80306; 80307; 81001; 82140; 82550; 83605; 83690; 83735; 84484; 85025; 87040; 93005; 93306; 96361; 96374; J2310; J7050; J7120; J7999

== ENCOUNTER 2024-07-20 02:08 | Inpatient (IN) | payer MEDICARE, OTHER ==
[2024-07-20] MEDS ORDERED: Ondansetron PF 4 MG/2 ML Vial ONE ×2 (02:21→05:16)
[2024-07-20] MEDS ORDERED: Morphine 4 MG/ML VIAL ONE ×2 (02:21→05:16)
[2024-07-20] MEDS ORDERED: Ondansetron ODT 4 MG TAB ONE (02:39)
[2024-07-20 03:02] LABS: #Basophils 0.03 10x3/uL (0.0-0.2); %Basophils 0.3 % (0.0-1.0); %Eosinophils 2.4 % (0.0-10.0); %Neutrophils 79.1 % (42.0-75.0); Hematocrit 52.8 % (42.0-52.0); Mean Corpuscular HGB CONC 32.2 g/dL (32.0-36.0); Mean Corpuscular Hemoglobin 27.7 pg (27.0-31.0); Mean Platelet Volume 9.7 fL (7.4-10.4); Platelet Count 127 10x3/uL (130-400); RBC Distribution Width 14.6 % (11.5-14.5); Red Blood Cell (RBC) Count 6.14 mill/uL (4.70-6.10)
[2024-07-20 03:15] LABS: ALT (SGPT) 15 U/L (8-55); AST (SGOT) 16 U/L (5-34); Albumin 4.2 g/dL (3.4-4.8); Alkaline Phosphatase 127 U/L (40-110); Anion Gap 16 mmol/L (10-20); BUN (Urea Nitrogen) 7 mg/dL (8.4-25.7); Bilirubin, Total 0.7 mg/dL (0.2-1.2); Calc. Creatinine Clearance 0 mL/min (70-130); Calcium 9.5 mg/dL (7.8-10.44); Carbon Dioxide 30 mmol/L (23-31); Chloride 100 mmol/L (98-107); Estimated GFR 64; Globulin 5.2 g/dL (2.4-3.5); Glucose 122 mg/dL (83-110); Lipase 9 U/L (8-78); Potassium 3.7 mmol/L (3.5-5.1); Protein, Total 9.4 g/dL (5.8-8.1); Sodium 142 mmol/L (136-145)
[2024-07-20 03:18] LABS: Troponin I Less than 0.010 ng/mL (< 0.028)
[2024-07-20 04:23] LABS: Troponin I 0.019 ng/mL (< 0.028)
[2024-07-20] MEDS ORDERED: Labetalol HCl 100 MG/20 ML VIAL SLOW IVP PRN (06:13)
[2024-07-20] MEDS: DULoxetine 20 MG CAP PO SCH (09:38)
[2024-07-20] MEDS: Famotidine/PF 20 mg/2ml Vial SLOW IVP SCH (09:38)
[2024-07-20] MEDS: Metoprolol Tartrate 25 MG TAB PO SCH (09:38)
[2024-07-20] MEDS: Aspirin Chewable 81 MG TAB PO SCH (09:38)
[2024-07-20] MEDS: D5 1/2 NS w/20 mEq KCL 1,000 ML IV SCH (10:22)
[2024-07-20 10:42] VITALS: BMI 30.5
[2024-07-20] MEDS ORDERED: Iopamidol-370 76% 500 ML MDV (1 ML CHARGE) ONE (12:00)
[2024-07-20] MEDS: Morphine 2 MG/ML VIAL SLOW IVP PRN (16:27)
[2024-07-20] MEDS: Ondansetron PF 4 MG/2 ML Vial IVP PRN (16:28)
[2024-07-20] MEDS: Mirtazapine 30 MG TAB PO SCH (20:57)
[2024-07-20] MEDS: Losartan 25 MG TAB PO SCH (20:57)
[2024-07-20] MEDS: Tamsulosin HCl 0.4 MG CAP PO SCH (20:57)
[2024-07-20] MEDS: Atorvastatin Calcium 10 MG TAB PO SCH (20:59)
[2024-07-20] MEDS: traZODone HCl 50 MG TAB PO SCH (20:59)
[2024-07-21] MEDS: Ketorolac Tromethamine 30 MG (1 mL) VIAL IVP PRN (03:47)
[2024-07-21 05:44] LABS: #Basophils Less than 0.03 10x3/uL (0.0-0.2); %Lymphocytes 19.7 % (21.0-51.0); %Monocytes 15.2 % (0.0-10.0); %Neutrophils 61.5 % (42.0-75.0); Hematocrit 43.9 % (42.0-52.0); Hemoglobin 13.9 g/dL (14.0-18.0); Mean Corpuscular HGB CONC 31.7 g/dL (32.0-36.0); Mean Corpuscular Volume 88.5 fL (78.0-98.0); Mean Platelet Volume 10.8 fL (7.4-10.4); Platelet Count 121 10x3/uL (130-400); RBC Distribution Width 14.8 % (11.5-14.5); Red Blood Cell (RBC) Count 4.96 mill/uL (4.70-6.10)
[2024-07-21 05:57] LABS: Phosphorus 2.8 mg/dL (2.3-4.7)
[2024-07-21 06:02] LABS: ALT (SGPT) 8 U/L (8-55); AST (SGOT) 10 U/L (5-34); Albumin 2.9 g/dL (3.4-4.8); Alkaline Phosphatase 80 U/L (40-110); Anion Gap 11 mmol/L (10-20); BUN (Urea Nitrogen) 10 mg/dL (8.4-25.7); Bilirubin, Total 0.5 mg/dL (0.2-1.2); Calc. Creatinine Clearance 84 mL/min (70-130); Calcium 7.9 mg/dL (7.8-10.44); Carbon Dioxide 30 mmol/L (23-31); Chloride 105 mmol/L (98-107); Estimated GFR 83; Globulin 3.8 g/dL (2.4-3.5); Glucose 127 mg/dL (83-110); Magnesium 1.8 mg/dL (1.6-2.6); Potassium 4.4 mmol/L (3.5-5.1); Protein, Total 6.7 g/dL (5.8-8.1); Sodium 142 mmol/L (136-145)
[2024-07-21] MEDS: Enoxaparin 40 MG (0.4 mL) SYRINGE SC SCH (08:49)
[2024-07-21] MEDS ORDERED: MD-Gastroview 120 ML BOT ONE (09:22)
[2024-07-21] MEDS ORDERED: Benzocaine/Menthol 1 LOZ LOZ PO PRN (09:35)
[2024-07-21] MEDS ORDERED: Sterile Water 10 ML VIAL FS PRN (21:00)
[2024-07-21] MEDS: Ziprasidone 20 MG VIAL IM SCH (22:28)
[2024-07-22 11:14] LABS: Hematocrit 44.5 % (42.0-52.0); Hemoglobin 13.9 g/dL (14.0-18.0); Mean Corpuscular HGB CONC 31.2 g/dL (32.0-36.0); Mean Corpuscular Volume 89.5 fL (78.0-98.0); Mean Platelet Volume 10.2 fL (7.4-10.4); Platelet Count 137 10x3/uL (130-400); RBC Distribution Width 14.6 % (11.5-14.5); Red Blood Cell (RBC) Count 4.97 mill/uL (4.70-6.10)
[2024-07-22 11:24] LABS: Anion Gap 11 mmol/L (10-20); BUN (Urea Nitrogen) 12 mg/dL (8.4-25.7); Calc. Creatinine Clearance 95 mL/min (70-130); Calcium 8.5 mg/dL (7.8-10.44); Carbon Dioxide 31 mmol/L (23-31); Chloride 105 mmol/L (98-107); Estimated GFR 91; Glucose 125 mg/dL (83-110); Potassium 4.1 mmol/L (3.5-5.1); Sodium 143 mmol/L (136-145)
[2024-07-22 15:17] LABS: Bacteria/HPF None Seen HPF (None Seen); Bilirubin Negative (Negative); Blood, Urine Trace (Negative); CAUTI Indications for Culture Alt mental st,lethar; Clarity Turbid (Clear); Glucose, Urine (Dipstick) Normal (Negative); Ketone, Urine Negative (Negative); Leukocyte 75 Leu/uL (Negative); Nitrite Negative (Negative); Protein, Urine (Dipstick) 50 mg/dL (Neg-Trace); Specific Gravity, Urine 1.044 (1.002-1.036); Urobilinogen Normal mg/dL (Less than 2); pH, Urine 5.5 (5.0-9.0)
[2024-07-22 15:21] LABS: Urine Culture Reflex No No
[2024-07-23 06:22] LABS: Magnesium 1.7 mg/dL (1.6-2.6)
[2024-07-23 20:51] VITALS: BP 162/89; TEMP 97.7
== END 2024-07-23 20:49 | disposition home or self-care (01) | DRG 389 ==
LOC: ERS 02:08 → SUATTDRO 02:08 → SURG B 05:34 → OBSVTOIN 07-21 16:20
PROVIDERS: ADMIT Internal Medicine; ATTEND Internal Medicine
PROC: 0DH673Z Insertion of Infusion Device into Stomach, Via Natural or Artificial Opening (ICD-10-PCS; principal; 2024-07-21)
DX: K56.609 Unspecified intestinal obstruction, unspecified as to partial versus complete obstruction (principal); F05 Delirium due to known physiological condition; I73.9 Peripheral vascular disease, unspecified; E78.5 Hyperlipidemia, unspecified; K21.9 Gastro-esophageal reflux disease without esophagitis; I10 Essential (primary) hypertension; F32.A Depression, unspecified; J44.9 Chronic obstructive pulmonary disease, unspecified; Z86.718 Personal history of other venous thrombosis and embolism; Z79.01 Long term (current) use of anticoagulants
CPT/HCPCS: 36415; 70450; 71045; 74018; 74177; 74250; 80048; 80053; 81001; 82140; 83690; 83735; 83880; 84100; 84484; 85025; 85027; 93005; 96372; 96374; 96375; 96376; G0378; J1650; J1885; J2270; J2272; J2405; J3486; J3490; J7042; Q0162; Q9963; Q9967

== ENCOUNTER → 2025-04-19 | Outpatient (CLI) | payer MEDICARE, OTHER | LOC: PET 10:15 | PROVIDERS: ATTEND Internal Medicine | DX: C61 Malignant neoplasm of prostate (principal); C32.3 Malignant neoplasm of laryngeal cartilage; J38.7 Other diseases of larynx | CPT/HCPCS: 78815; A9552 ==